=== PATIENT | male | born 1940 | race Caucasian/White ===

== ENCOUNTER 2016-08-12 11:05 | Inpatient (IN) | payer OTHER, MEDICARE ==
[~2016-08-12] VITALS: Ht 165.1 cm; Wt 63.5 kg
[~2016-08-12 11:05] MED LIST: ASPIRIN EC81 M1 PO; BUDESONIDE0.25 MG/1 INH/SOL; CARVEDILOL3.125 M1 PO; CEFTRIAXONE1 G1 IM; CEFTRIAXONE500 MG IM; CENTRUM SILVER1 TAB PO; COUMADIN 2 MG TA2 MG PO; COUMADIN2 M1 PO; COUMADIN4 M1 PO; DAILY VALUE1 EACH PO; DIGOXIN0.125 MG PO; DIGOXIN125 MCG PO; ELIQUIS2.5 M1 PO; FENOFIBRATE145 M1 PO; FOLIC ACID1 M1 PO; FUROSEMIDE20 M1 PO; FUROSEMIDE20 MG PO; HYDRALAZINE HCL25 M1 PO; IPRAT-ALBUT 0.5-3 ML PO; ISOSORBIDE MONO30 M1 PO; LANOXIN125 MCG PO; LANTUS100 U/ML SC; LASIX40 M1 PO; LEVEMIR100 UNIT/1 SC; LIPITOR40 M1 PO; LISINOPRIL2.5 MG PO; MIRTAZAPINE15 M2 PO; MOXIFLOXACIN H400 M2 PO; NOVOLOG100 U/ML SC; NOVOLOG100 UNIT/2 SC; OMEPRAZOLE40 M1 PO; PANTOPRAZOLE SO40 M1 PO; PREDNISONE10 M2 PO; PREDNISONE10 MG PO; PREDNISONE20 M1 PO; PREDNISONE5 M1 PO; RENO CAPS SOFTGE1 MG PO; RENO CAPS1 SGL PO; SENNA8.6 M3 PO; SYMBICORT 16010.2 GM; TRAZODONE HCL50 M1 PO; VOLTAREN100 GM TOP; WARFARIN SODIUM2 MG PO; ZOLPIDEM TARTRAT5 MG PO
--- NOTE | 2016-08-12 11:08 | ED DYSPNEA/ASTHMA COMPLAINT ---
History of Present Illness General Chief Complaint: Dyspnea (COPD, CHF, Other) Stated Complaint: SOB Source: patient, old records, EMS Exam Limitations: LETHARGY Vital Signs & Intake/Output Vital Signs & Intake/Output Vital Signs Date Time Temp Pulse Resp B/P Pulse O2 O2 Flow FiO2 Ox Delivery Rate 08/14 1118 94 08/14 1116 7 138/68 08/14 1116 77 138/68 08/14 1116 7 138/68 08/14 0924 98.2 83 20 128/70 96 Nasal 3.0L Cannula 08/14 0853 99 Nasal 3.0L Cannula 08/14 0000 Nasal Cannula 08/13 2200 98.0 80 20 120/70 95 Nasal Cannula 08/13 2129 64 120/70 08/13 2129 64 120/70 08/13 1808 95 Nasal 3.0L Cannula 08/13 1530 97.6 66 20 120/60 93 Nasal 2.0L Cannula ED Intake and Output 08/14 0000 08/13 1200 Intake Total 1171 220 Output Total 450 200 Balance 721 20 Intake, IV 11 Intake, Oral 1160 220 Output, Urine 450 200 Patient 157 lb Weight Allergies Coded Allergies: Fish Containing Products (N/V 05/07/16) banana (07/27/16) chicken derived (CHICKEN PROTEIN N/V 05/07/16) egg (07/27/16) shellfish derived (UNKNOWN 05/07/16) Uncoded Allergies: MEAT (07/27/16) EXTRACT Reconcile Medications Apixaban (Eliquis) 2.5 MG TABLET 1 TAB PO BID BLOOD THINNER (Reported) Aspirin (Ecotrin*) 81 MG TABLET.DR 1 TAB PO DAILY HEART HEALTH (Reported) Budesonide 0.25 MG/2 ML AMPUL.NEB 1 Vial INH/CRISTOPHER BID BREATHING PROBLEMS ( Reported) Carvedilol 3.125 MG TABLET 1 TAB PO BID BP (Reported) Digoxin (Lanoxin) 125 MCG TABLET 0.125 MG PO Q48 a-fib Folic Acid 1 MG TABLET 1 TAB PO DAILY SUPPLEMENT (Reported) Furosemide (Lasix) 40 MG TABLET 1 TAB PO BID CHF Hydralazine HCl 25 MG TABLET 25 MG PO BID HTN Insulin Aspart (Novolog) (Unknown Strength) VIAL 0 SC SEE SLIDING SCALE DIABETES (Reported) BEFORE MEALS Blood Insulin Sugar Units <80 0 81-100 2 101-200 4 201-250 6 251-300 8 301-350 10 351-400 12 >400 Call Doctor Insulin Detemir (Levemir) 100 UNIT/ML VIAL 6 U SC QPM DIABETES (Reported) Ipratropium/Albuterol Sulfate (Iprat-Albut 0.5-3(2.5) MG/3 Ml) 0.5 MG-3 MG (2.5 MG BASE)/3 ML AMPUL.NEB 1 VIAL PO 4 TIMES/DAY BREATHING PROBLEMS (Reported) Isosorbide Mononitrate (Isosorbide Mononitrate ER) 30 MG TAB.ER.24H 30 MG PO DAILY HTN Mirtazapine 15 MG TABLET 1 TAB PO QPM SLEEP (Reported) Multivitamin (Daily Value) 1 EACH TABLET 1 TAB PO DAILY SUPPLEMENT (Reported) Pantoprazole Sodium 40 MG TABLET.DR 1 TAB PO DAILY GI (Reported) Prednisone 10 MG TABLET 10 MG PO DAILY COPD Sennosides (Senna) 8.6 MG TABLET 1 TAB PO BID CONSTIPATION (Reported) Trazodone HCl 50 MG TABLET 0.5 TAB PO AT BEDTIME SLEEP (Reported) Triage Nurses Notes Reviewed? yes Onset: Abrupt Duration: day(s): (1), constant Timing: recent history Severity: moderate Activities at Onset: activity, rest Prior Episodes/Possible Cause: occasional episodes Modifying Factors: Worsens With: movement. 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 Per nursing staff the patient was taken off IV Lasix yesterday and since then has had progressively worsening lethargy, dyspnea with decreased O2 sats on 2 L, fatigue and lethargy. On arrival the patient denies any pain. According to the 10 patient has had decreased sats with crackles wheezing bilaterally and bilateral lower extremity edema. He is currently on Lasix 40 mg by mouth twice a day. He was recently admitted here for CHF. He is gained 4 pounds overnight according to W 10. No recent fever or chills patient denies any pain dizziness lightheadedness (PATY LOMELI,CATA) Past History Travel History Traveled to [place] past 21 day No Medical History Any Pertinent Medical History? 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) Renal: chronic kidney disease Musculoskeletal: R THUMB REMOVED L SHOULDER SURGERY industrial accident leading to traumatic amputation in 1966 Psychiatric: depression Endocrine: diabetes Blood Disorders: NONE Cancer(s): NONE PSYCHOLOGIST EXPERIMENTAL/Reproductive: NONE History of MRSA: No History of VRE: No History of CDIFF: No Pneumonia Vaccine: 04/12/16 Influenza Vaccine: 04/12/16 Surgical History Surgical History: cholecystectomy (lap), L LEG BIPASS L CHEST WALL PACEMAKER/ AICD TRIPLE BIPASS ANGIOPLASTY ENDOVASC AAA REPAIR Psychosocial History Who do you live with Patient/Self Services at Home Home Health Aide (prior to 05/11/16; in [place]) What is your primary language Indian Family History Family History, If Any: SON FH: diabetes mellitus FHx: hypertension FATHER, , Age 60+; Cause: Myocardial infarction. FH: myocardial infarction MOTHER, , Age 54; Cause: Unknown cause of morbidity or mortality. Hx Contributory? No (CATA RAGSDALE) Review of Systems Review of Systems Constitutional: Reports: see HPI. All Other Systems: Reviewed and Negative Comments Review of systems: See HPI, All other systems negative. Constitutional, no chills no fever, malaise HEENT: No visual changes no sore throat no congestion Cardiovascular: No chest pain , no palpitation Skin, no rashes, no change in skin Respiratory: dyspnea no cough no sputum GI: No nausea no vomiting, no diarrhea, no bloating/constipation : No dysuria No hematuria Muscle skeletal: No joint pain, no back pain, no neck pain, Neurologic: No numbness, no headache Psych: No stress Heme/endocrine: No bruising no bleeding Immunology: No lymphadenopathy (CATA RAGSDALE) Physical Exam Physical Exam General Appearance: awake, cachetic Respiratory: crackles, wheezing Comments: CACHETIC person in no acute distress HEENT: Normal EENT exam; PERRL, EOMI, HEAD is atraumatic. moist mucous membranes. Neck: Supple, no lymphadenopathy, normal range of motion without pain or tenderness Back: Nontender, no CVA tenderness. Full range of motion Cardiovascular: Regular rate and rhythms no murmurs rubs Respiratory: Chest nontender.There were no bony deformities, no asymmetry. No respiratory distress. Patient speaking in full complete sentences. Breath sounds clear to auscultation bilaterally: NO W/R/R Abdomen: Soft, nontender nondistended, no appreciable organomegaly. Normal bowel sounds. No rebound/guarding, No ascites. Extremity: 2+ B/L LE jennyfer, full range of motion of extremities, normal and equal pulses bilaterally, 5 out of 5 strength noted to bilateral upper and lower extremities Neuro: Alert oriented x3, motor sensory normal, There were no obvious focal neurologic abnormalities. Skin: No appreciable rash on exposed skin, skin is warm and dry. Psych: Mood and affect is normal, memory and judgment is normal. Core Measures ACS in differential dx? Yes Severe Sepsis Present: No Septic Shock Present: No (PATY LOMELI,CATA) Progress Differential Diagnosis: asthma, AMI, bronchitis, costochondritis, CHF, COPD, musculoskeletal pain, pericarditis, pulmonary embolism, pneumonia Plan of Care: Orders Procedure Date/time Status CBC WITHOUT DIFFERENTIAL 08/15 0600 Active BASIC ELECTROLYTES PLUS BUN&CR 08/15 0600 Active Consistent Carbohydrate 3 08/14 L Active INCENTIVE SPIROMETRY TRX CHG 08/13 UNK Complete AEROSOL CHG 08/13 UNK Complete OXYGEN 08/13 UNK Complete OXYGEN DAILY CHARGE 08/13 UNK Complete OXYGEN SETUP CHG 08/12 UNK Complete INCENTIVE SPIROMETRY TRX CHG 08/12 UNK Complete AEROSOL CHG 08/12 UNK Complete OXYGEN 08/12 UNK Complete OXYGEN TRANSPORT 08/12 UNK Complete Current Medications Sig/Bang Start time Last Medication Dose Stop Time Status Admin Senna/Docusate Sodium 1 TAB BID PRN 08/12 1430 AC (Senokot S) Laboratory Tests 08/14/16 0630: Anion Gap 13, Estimated GFR 33 L, BUN/Creatinine Ratio 42.0 H, Magnesium 2.3, CBC w Diff MAN DIFF ORDERED, RBC 4.94, MCV 77.8 L, MCH 24.2 L, RDW 25.5 H, MPV 9.2, Gran % 94.5 H, Lymphocytes % 2.9 L, Monocytes % 2.5, Eosinophils % 0.1, Basophils % 0 L, Absolute Granulocytes 10.2 H, Absolute Lymphocytes 0.3 L, Absolute Monocytes 0.3, Absolute Eosinophils 0, Absolute Basophils 0, Platelet Estimate VERIFIED BY SMEAR, Polychromasia 1+, Hypochromic-Microcytic 2+ , Poikilocytosis 1+, Basophilic Stippling SLIGHT, Anisocytosis 2+, Microcytic Cells 1+, Target Cells , PUBS MCHC 31.1 L Labs ordered ABG DuoNeb ordered case discussed with Dr. Francis Discussed with the patient and his son all his lab results and EKG and chest x- ray findings need for admission which erythema patient was medicated with Lasix 40 IV Case discussed with Dr. Lewis covering for Dr. RYAN WILL ADMIT (PATY LOMELI,CATA) Diagnostic Imaging: Viewed by Me: Radiology Read. Discussed w/RAD: Radiology Read. Radiology Impression: PATIENT: BRIDGET HERRERA PRESENT AGE: 75 PATIENT ACCOUNT NO: [id number] : 42 LOCATION: [facility] ORDERING PHYSICIAN: CATA LOMELI SERVICE DATE: 08/12/16 EXAM TYPE: RAD - XRY-PORTABLE CHEST XRAY EXAMINATION: XR PORTABLE CHEST CLINICAL INFORMATION: Shortness of breath. COMPARISON: CXR from 07/26/2016 TECHNIQUE: Portable view of the chest was obtained. FINDINGS: The patient's chin overlies the right lung apex. Again noted is a large cardiac silhouette, engorged pulmonary vessels and interstitial thickening -- likely cardiogenic interstitial edema. There is a left chest wall cardiac pacemaker/AICD with transvenous leads extending to the right atrium and both ventricles. Pleural effusions remain similar in size compared to 07/26/2016 (left larger than right). There are nonspecific patchy opacities in the lower lobes from atelectasis, edema and/or infiltrates, and these basilar opacities have slightly increased compared to . Bones appear diffusely osteopenic. IMPRESSION: Cardiomegaly and congestive heart failure. Interstitial edema is evident. Persistent bilateral pleural effusions (left remaining larger than right). The increased patchy opacities in lower lung zones are nonspecific and could reflect presence of atelectasis, edema and/or infiltrates. DICTATED BY: DEUCE VAZ MD DATE/TIME DICTATED:08/12/161222 DENTURE MODEL MAKER:EARL DATE/TIME TRANSCRIBED: / 1223 CONFIDENTIAL, DO NOT COPY WITHOUT APPROPRIATE AUTHORIZATION. < Electronically signed in Other Vendor System> SIGNED BY: DEUCE VAZ MD 08/12/16 1231 Initial ED EKG: AFIB AT 90, NO ACUTE ST SEG CHAGNGES, NORMAL AXIS Prior EKG: unchanged (07/2016) Rhythm Strip: atrial fibrillation (CATA RAGSDALE) Departure Departure Time of Disposition: 1303 Disposition: STILL A PATIENT Condition: Stable Clinical Impression Primary Impression: CHF exacerbation Secondary Impressions: BOBBY (acute kidney injury) Referrals: ANISH RYAN MD (PCP/Family) Referred to [facility] as new patient No Departure Forms: Customer Survey General Discharge Information Admission Note Spoke With: LINDA LEWIS MD Documentation of Exam: Documentation of any treatments & extenuating circumstances including Concerns Regarding Discharge (functional status, medication knowledge or non-compliance, living conditions, etc.) that warrant an admission rather than observation: IV diuresis trend labs including creatinine, transient troponin cardiology consult respiratory treatments when necessary premature discharge would BE medically harmful (CATA RAGSDALE) PA/NEURO PSYCH SALES SPECIALIST Co-Sign Statement Statement: ED Attending supervision documentation- [x] I saw and evaluated the patient. I have also reviewed all the pertinent lab results and diagnostic results. I agree with the findings and the plan of care as documented in the PA's/NEURO PSYCH SALES SPECIALIST's documentation. [x] I have reviewed the ED Record and agree with the PA's/NEURO PSYCH SALES SPECIALIST's documentation. [] Additions or exceptions (if any) to the PAs/NEURO PSYCH SALES SPECIALIST's note and plan are summarized below: [] (NATE NEGRETE,WAQAR) Critical Care Note Critical Care Note Critical Care Time: non-applicable (CATA RAGSDALE) Case discussed with Dr. Lewis covering for Dr. RYAN WILL ADMIT (CATA RAGSDALE) Departure Departure Time of Disposition: 1303 Disposition: STILL A PATIENT Condition: Stable Clinical Impression Primary Impression: CHF exacerbation Secondary Impressions: BOBBY (acute kidney injury) Referrals: ANISH RAYN MD (PCP/Family) Referred to [facility] as new patient No Departure Forms: Customer Survey General Discharge Information Admission Note Spoke With: LINDA LEWIS MD Documentation of Exam: Documentation of any treatments & extenuating circumstances including Concerns Regarding Discharge (functional status, medication knowledge or non-compliance, living conditions, etc.) that warrant an admission rather than observation: IV diuresis trend labs including creatinine, transient troponin cardiology consult respiratory treatments when necessary premature discharge would BE medically harmful (CATA RAGSDALE) PA/NEURO PSYCH SALES SPECIALIST Co-Sign Statement Statement: ED Attending supervision documentation- [x] I saw and evaluated the patient. I have also reviewed all the pertinent lab results and diagnostic results. I agree with the findings and the plan of care as documented in the PA's/NEURO PSYCH SALES SPECIALIST's documentation. [x] I have reviewed the ED Record and agree with the PA's/NEURO PSYCH SALES SPECIALIST's documentation. [] Additions or exceptions (if any) to the PAs/NEURO PSYCH SALES SPECIALIST's note and plan are summarized below: [] (NATE NEGRETE,WAQAR) Critical Care Note Critical Care Note Critical Care Time: non-applicable (CATA RAGSDALE)
--- NOTE | 2016-08-12 11:10 | NUR ---
BIBA FROM [facility] FOR SOB AND INCREASING EDEMA. PT WAS ON IV LASIX BUT HAS STOPPED THE IV AND IS NOW ON PO LASIX. PT HAS HAD EDEMA, CRACKLES, AND SOB WORSENING SINCE LAST NIGHT. PT ON 2LNC AT BASELINE. UPON ARRIVAL PT LETHARGIC BUT ORIENTED X3. 93% ON 4LNC.
--- NOTE | 2016-08-12 11:56 | NUR ---
BLOOD DRAWN AND SENT TO LAB-[facility].
[2016-08-12 12:10] LABS: ABSOLUTE BASOPHIL COUNT 0 /CUMM (0.0-0.2); ABSOLUTE EOSINOPHIL COUNT 0.1 /CUMM (0.0-0.7); ABSOLUTE LYMPH COUNT 0.3 /CUMM (1.2-3.4); ABSOLUTE MONOCYTE COUNT 0.5 /CUMM (0.10-0.60); BASOPHIL % 0.1 % (0.0-2.0); EOSINOPHIL % 1.1 % (0-5); GRANULOCYTE % 87.1 % (42.2-75.2); HEMATOCRIT 36.4 % (42-52); MEAN CORPUSCULAR HGB 24.3 PG (27.0-31.0); MEAN CORPUSCULAR HGB CONC 31.2 G/DL (33.0-37.0); MEAN CORPUSCULAR VOLUME 77.9 FL (80.0-94.0); MEAN PLATELET VOLUME 9.5 FL (7.4-10.4); PLATELET COUNT 226 /CUMM (130-400); RED BLOOD CELL CT 4.67 /CUMM (4.70-6.10); WHITE BLOOD CELL COUNT 6.9 /CUMM (4.8-10.8)
--- NOTE | 2016-08-12 12:29 | NUR ---
IV LASIX ADMINISTERED. PT'S SON (POBlanca) AT BEDSIDE. STATES HE'S HAD INCREASING LEFT ARM EDEMA X1 WEEK. AVSS, HR 70'S. 02 DECREASED TO 3LNC,NOW 94-95%
--- NOTE | 2016-08-12 12:31 | RADIOLOGY REPORT ---
EXAMINATION: XR PORTABLE CHEST CLINICAL INFORMATION: Shortness of breath. COMPARISON: CXR from 07/26/2016 TECHNIQUE: Portable view of the chest was obtained. FINDINGS: The patient's chin overlies the right lung apex. Again noted is a large cardiac silhouette, engorged pulmonary vessels and interstitial thickening -- likely cardiogenic interstitial edema. There is a left chest wall cardiac pacemaker/AICD with transvenous leads extending to the right atrium and both ventricles. Pleural effusions remain similar in size compared to 07/26/2016 (left larger than right). There are nonspecific patchy opacities in the lower lobes from atelectasis, edema and/or infiltrates, and these basilar opacities have slightly increased compared to 07/26/2016. Bones appear diffusely osteopenic. IMPRESSION: Cardiomegaly and congestive heart failure. Interstitial edema is evident. Persistent bilateral pleural effusions (left remaining larger than right). The increased patchy opacities in lower lung zones are nonspecific and could reflect presence of atelectasis, edema and/or infiltrates.
--- NOTE | 2016-08-12 14:29 | NUR ---
PT RESTING COMFORTABLY, IN NAD
--- NOTE | 2016-08-12 15:36 | History & Physical ---
GREG JESUS 08/12/16 1416: General Information and HPI MD Statement: I have seen and personally examined BRIDGET HERRERA and documented this H&P. The patient is a 75 year old M who presented with a patient stated chief complaint of worsening shortness of breath and bilateral lower extremity edema for 1 day Source of Information: patient, old records, W10 Exam Limitations: clinical condition History of Present Illness: This is a 75-year-old male with past medical history significant for HFREF secondary to ischemic cardiomyopathy status post biventricular AICD, atrial fibrillation on eliqus and digoxin, coronary artery disease status post CABG and triple bypass, COPD on 2 L oxygen, systolic congestive heart failure on Lasix, type 2 diabetes mellitus, insomnia, anxiety, depression, GERD, peripheral vascular disease, endovascular abdominal aortic repair, right MCA stroke was brought to [facility] emergency department from [facility] for worsening shortness of breath, bilateral lower extremity edema, decreased oxygen saturations for one day. Of note patient was discharged on 07/30/2016 after treated for acute decompensated heart failure. He was discharged to [facility] on Lasix 40 mg twice a day. Last echocardiogram done in July 2016 showed ejection fraction 15-20% with systolic failure, moderate pulmonary hypertension. Patient was hospitalized in April 2015 after mechanical fall and treated for pneumonia and discharged to [facility]. Patient reports worsening shortness of breath since yesterday and his oxygen saturations were dropping down on 2 L and has been Requiring high amounts of oxygen. SOB Associated with wheezing. No orthopnea and paroxysmal nocturnal dyspnea. Not associated with any fever, chills, cough, hemoptysis or sputum production. He denied any chest pain, palpitations. He denied any sick contacts or travel history. He denied any nausea, vomiting, abdominal pain, change in bladder or bowel habits. According to W10 patient has been lethargic since last night. He complained fatigue at the rehabilitation center. Noticed worsening bilateral lower extremity edema for one day. He gained weight 4 pounds. No changes in diet. Complement with medication. He quitted smoking 15 years ago, denies alcohol intake, denies illicit drug abuse. 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 Allergies/Medications Allergies: Coded Allergies: Fish Containing Products (N/V 05/07/16) banana (07/27/16) chicken derived (CHICKEN PROTEIN N/V 05/07/16) egg (07/27/16) shellfish derived (UNKNOWN 05/07/16) Uncoded Allergies: MEAT (07/27/16) EXTRACT Home Med list Apixaban (Eliquis) 2.5 MG TABLET 1 TAB PO BID BLOOD THINNER (Reported) Aspirin (Ecotrin*) 81 MG TABLET.DR 1 TAB PO DAILY HEART HEALTH (Reported) Budesonide 0.25 MG/2 ML AMPUL.NEB 1 Vial INH/CRISTOPHER BID BREATHING PROBLEMS ( Reported) Carvedilol 3.125 MG TABLET 1 TAB PO BID BP (Reported) Digoxin (Lanoxin) 125 MCG TABLET 0.125 MG PO Q48 a-fib Folic Acid 1 MG TABLET 1 TAB PO DAILY SUPPLEMENT (Reported) Furosemide (Lasix) 40 MG TABLET 1 TAB PO BID CHF Hydralazine HCl 25 MG TABLET 25 MG PO BID HTN Insulin Aspart (Novolog) (Unknown Strength) VIAL 0 SC SEE SLIDING SCALE DIABETES (Reported) BEFORE MEALS Blood Insulin Sugar Units <80 0 81-100 2 101-200 4 201-250 6 251-300 8 301-350 10 351-400 12 >400 Call Doctor Insulin Detemir (Levemir) 100 UNIT/ML VIAL 6 U SC QPM DIABETES (Reported) Ipratropium/Albuterol Sulfate (Iprat-Albut 0.5-3(2.5) MG/3 Ml) 0.5 MG-3 MG (2.5 MG BASE)/3 ML AMPUL.NEB 1 VIAL PO 4 TIMES/DAY BREATHING PROBLEMS (Reported) Isosorbide Mononitrate (Isosorbide Mononitrate ER) 30 MG TAB.ER.24H 30 MG PO DAILY HTN Mirtazapine 15 MG TABLET 1 TAB PO QPM SLEEP (Reported) Multivitamin (Daily Value) 1 EACH TABLET 1 TAB PO DAILY SUPPLEMENT (Reported) Pantoprazole Sodium 40 MG TABLET.DR 1 TAB PO DAILY GI (Reported) Prednisone 10 MG TABLET 10 MG PO DAILY COPD Sennosides (Senna) 8.6 MG TABLET 1 TAB PO BID CONSTIPATION (Reported) Trazodone HCl 50 MG TABLET 0.5 TAB PO AT BEDTIME SLEEP (Reported) Compliance With Home Meds: GOOD Past History Travel History Traveled to [place] past 21 day No Medical History Neurological: NONE (R MCA distribution), CVA EENT: NONE Cardiovascular: AFIB, CAD, cardiomyopathy, CHF, hypertension, hyperlipidemia, PVD, PACEMAKER/DEFIB TRIPLE BIPASS ANGIOPLASTY ischemic cardiomyopathy Respiratory: emphysema, interstitial lung disease Gastrointestinal: 04/23/07: EGD- min GERD w/o bxs 09/18/04: Colon- purged, hyperplastic polyps Hepatic: 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) Renal: chronic kidney disease Musculoskeletal: R THUMB REMOVED L SHOULDER SURGERY industrial accident leading to traumatic amputation in 1966 Psychiatric: depression Endocrine: diabetes Blood Disorders: NONE Cancer(s): NONE BODY MASKER/Reproductive: NONE History of MRSA: No History of VRE: No History of CDIFF: No Pneumonia Vaccine: 04/12/16 Influenza Vaccine: 04/12/16 Surgical History Surgical History: cholecystectomy (lap), L LEG BIPASS L CHEST WALL PACEMAKER/ AICD TRIPLE BIPASS ANGIOPLASTY ENDOVASC AAA REPAIR Past Family/Social History Family History Relations & Conditions if any SON FH: diabetes mellitus FHx: hypertension FATHER, , Age 60+; Cause: Myocardial infarction. FH: myocardial infarction MOTHER, , Age 54; Cause: Unknown cause of morbidity or mortality. Psychosocial History Who Do You Live With? spouse (prior to 05/11/16; in [place]), self Services at Home: Home Health Aide (prior to 05/11/16; in [place]) Primary Language: South African, Montenegrin Smoking Status: Former Smoker ETOH Use: denies use, 6 Illicit Drug Use: denies illicit drug use Living Will? no Power of Director Of Acquisitions/HCP? yes Name of POA/HCP: pt's sonKamlesh [phone] Functional Ability ADLs Independent: eating, toileting. Needs Assist: dressing, bathing. Ambulation: independent IADLs Independent: shopping, housework, finances, food prep, telephone, medication admin. Needs Assist: transportation. Review of Systems Review of Systems Constitutional: Reports: weakness. Denies: chills, diaphoresis, fever, malaise, unexplained weight loss. EENTM: Denies: double vision, hearing changes. Cardiovascular: Reports: peripheral edema. Denies: chest pain, edema, orthopena, palpitations, syncope. Respiratory: Reports: short of breath, wheezing. Denies: cough, hemoptysis, orthopnea, stridor. GI: Denies: abdominal pain, constipation, diarrhea, nausea, changes in stool, vomiting. Genitourinary: Denies: frequency, hematuria, hesitation. Musculoskeletal: Denies: back pain, joint pain. Neurological/Psychological: Denies: confusion, depressed, headache, numbness, tingling, tremors, weakness. Exam & Diagnostic Data Last 24 Hrs of Vital Signs/I&O Vital Signs Date Time Temp Pulse Resp B/P Pulse O2 O2 Flow FiO2 Ox Delivery Rate 08/12 1346 97.6 74 22 134/70 92 Nasal 4.0L Cannula 08/12 1224 75 12 143/79 94 Nasal 3.0L Cannula 08/12 1141 92 Nasal 4.0L Cannula 08/12 1109 96.8 81 20 165/79 94 Nasal 4.0L Cannula Intake & Output 08/12 1600 08/12 0800 08/12 0000 Intake Total 0 Output Total Balance 0 Intake, Oral 0 Patient 69.853 kg Weight Physical Exam General Appearance Alert, Oriented X3, Cooperative, Mild Distress Skin No Rashes, No Breakdown HEENT Atraumatic, Mucous Membr. moist/pink Neck Supple, No JVD Lymphatic Cervical nl Cardiovascular Regular Rate, Normal S1, Normal S2, No Murmurs, irregular rhythm Lungs dec air entry and b/l wheezes Abdomen Normal Bowel Sounds, Soft, No Tenderness Extremities No Clubbing, No Cyanosis, b/l lower ext +2 edema Vascular Normal Pulses Last 24 Hrs of Labs/Regis: Laboratory Tests 08/12/16 1156: Anion Gap 10, Estimated GFR 40 L, BUN/Creatinine Ratio 36.5 H, Glucose 165 H, Calcium 8.3 L, Total Bilirubin 1.9 H, AST 48, ALT 71, Alkaline Phosphatase 94, Troponin I 0.09, [id number] Pept 93015 H, Total Protein 6.6, Albumin 2.6 L, Globulin 4.0, Albumin/Globulin Ratio 0.7 L, CBC w Diff MAN DIFF ORDERED, RBC 4.67 L, MCV 77.9 L, MCH 24.3 L, RDW 26.0 H, MPV 9.5, Gran % 87.1 H, Lymphocytes % 4.9 L, Monocytes % 6.8, Eosinophils % 1.1, Basophils % 0.1, Absolute Granulocytes 6.0, Absolute Lymphocytes 0.3 L, Absolute Monocytes 0.5, Absolute Eosinophils 0.1, Absolute Basophils 0, Platelet Estimate VERIFIED BY SMEAR, Polychromasia 1+, Hypochromic-Microcytic 2+, Poikilocytosis 1+, Anisocytosis 1+, Microcytic Cells 1+, Ovalocytes 1+, PUBS MCHC 31.2 L 08/12/16 1133: pH 7.33 L, pCO2 49 H, pO2 79 L, HCO3 25, ABG O2 Sat (Measured) 93.0 L, P-50 (Temp Corrected) N, Carboxyhemoglobin 2.0, O2 Concentration % 4LPM, O2 Delivery Method NC, Phlebotomy Draw Site RIGHT BRACHIAL Microbiology 08/12 111 BLOOD: Blood Culture - CAN Cancelled: Cancelled via OE: Per MD Decision 08/12 111 BLOOD: Blood Culture - CAN Cancelled: Cancelled via OE: Per MD Decision Diagnostic Data EKG Results Atrial fibrillation/flutter Ventricular paced complexes Rate [address]-T wave changes CXR Results Cardiomegaly and congestive heart failure Bilateral interstitial edema Bilateral pleural effusions left greater than right Assessment/Plan Assessment: This is a 75-year-old male with past medical history significant for HFREF secondary to ischemic cardiomyopathy status post biventricular AICD, atrial fibrillation on eliqus and digoxin, coronary artery disease status post CABG and triple bypass, COPD on 2 L oxygen, systolic congestive heart failure on Lasix, type 2 diabetes mellitus, insomnia, anxiety, depression, GERD, peripheral vascular disease, endovascular abdominal aortic repair, right MCA stroke was brought to [facility] emergency department from [facility] for worsening shortness of breath, bilateral lower extremity edema, decreased oxygen saturations for one day. Of note patient was discharged on 07/30/2016 after treated for acute decompensated heart failure. He was discharged to [facility] on Lasix 40 mg twice a day. Last echocardiogram done in July 2016 showed ejection fraction 15-20% with systolic failure, moderate pulmonary hypertension. Vitals on admission-afebrile, heart rate 80, respiratory rate 20, blood pressure 165/70, saturating at 94% on 4 L. -Pertinent labs-CBC normal, sodium 139, potassium 5.4, BUN 62, creatinine 1.7. Liver function tests-bilirubin 1.9, ALT 71, AST 48, alkaline phosphatase 94 Troponins negative on admission ProBNP 39390. ABG 7.33, 25, 49 EKG atrial flutter fibrillation rate 88. No ST-T wave changes. Chest x-ray showed cardiomegaly and congestive heart failure interstitial edema and bilateral pleural effusions left greater than right Patient received IV Lasix 40 mg once in the emergency room. Problem list 1. Acute exacerbation of HFREF 2. Possible COPD exacerbation 3. Atrial fibrillation 4. Chronic kidney disease 5. Coronary artery disease status post CABG 6. Type 2 diabetes mellitus 7. Insomnia 8. Anxiety 9. GERD 10. Depression Acute exacerbation of systolic congestive heart failure(hfref) Patient was brought to the emergency department with worsening shortness of breath and decreased oxygen saturations on 2 L oxygen. Increased weight gain and bilateral lower extremity edema was found. He was found lethargic and wheezing. ProBNP elevated on admission. Chest x-ray showed cardiomegaly and congestive heart failure, bilateral pleural effusions left greater than right. Of note patient was discharged on 07/30/2016 after being treated for acute systolic congestive heart failure. He was discharged on carvedilol, hydralazine ,IMDUR, Lasix 40 twice a day, digoxin. * Admitted to telemetry floor for treatment of acute CHF exacerbation * Monitor vitals every shift * Maintain oxygen saturation above 92% * Provide supplemental oxygen-saturating at 92% on 4 L now * Strict ins and outs * Daily weights * Give IV Lasix 40 bd. * Monitor BEP. * Cardiology consult * Echo was done recently. * Continue Coreg 3.125 twice a day * Continue isosorbide mononitrate 30 mg daily * Continue home dose of hydralazine 25 mg twice a day. * First set of EKG and troponins negative * Serial EKG and troponin Possible COPD exacerbation Presented with worsening shortness of breath and wheezing. He was lethargic and wheezing. ABGs in the emergency room showed pH 7.33, bicarbonate 25, carbon dioxide 49, respiratory acidosis with compensation. Of note patient is on 2 L oxygen at nursing care facility. He is requiring 4 L now. * Continue providing oxygen supplementation * Maintain oxygen saturation above 90% * Monitor vitals closely * Total respiratory care * Methylprednisolone 40 mg every 8hrs * Budesonide * albuterol/ipratropium * Blood cultures * Sputum cultures Hyperkalemia Potassium 5.4 on admission No EKG changes We'll monitor closely BEP in the morning Chronic kidney disease Baseline creatinine 1.5-1.8. Creatinine on admission 1.7 Atrial fibrillation Continue home dose of eliqus 2.5 mg twice a day Continue digoxin 0.125 mg every 48 hours Coronary artery disease Status post CABG and triple bypass Continue baby aspirin Hypertension Continue home dose of Coreg hydralazine and isosorbide mono nitrate both for hypertension and CHF Type 2 diabetes mellitus Patient is on NovoLog sliding scale and Levemir 6 units every night for type 2 diabetes mellitus * Accu-Cheks * Continue Levemir * Continue NovoLog sliding scale Insomnia Continue mirtazapine every night anxiety Continue trazodone 25 mg GERD Continue pantoprazole 40 daily Patient is full code Mild pain pathway Tylenol Heart healthy diet DVT prophylaxis-patient is on eliqus As Ranked By This Provider Problem List: 1. CHF EXACERBATION 2. COPD exacerbation 3. HFrEF (heart failure with reduced ejection fraction) 4. Ischemic cardiomyopathy 5. T2DM (type 2 diabetes mellitus) 6. COPD (chronic obstructive pulmonary disease) Core Measures/Miscellaneous Acute Coronary Syndrome ACS Diagnosis: No Cerebrovascular Accident CVA/TIA Diagnosis: No Congestive Heart Failure CHF Diagnosis: Yes Date of most recent Echo: 07/26/16 Last Known EF %: 20 FAISAL/ARB for EF <40%: No No FAISAL/ARB d/t: Renal Failure/Azotemia Venous Thromboembolism VTE Risk Factors: Acute medical illness, Age > 40, CHF or Resp failure VTE Prophylaxis [facility]dered Inpt: [facility] prophylaxis d/t: No contraindications No VTE Pharm Prophylaxis d/t: No contraindications VTE Diagnosis: No VTE Type: NONE VTE Confirmed by (Test): NONE Severe Sepsis Severe Sepsis Present: No Septic Shock Septic Shock Present: No Miscellaneous Documentation Attending Case Discussed With: DEBBIE NEGRETE,LINDA Cruz Primary Care Physician: ANISH RYAN MD Patient sees these Specialists cardiology Level of Patient Care: Telemetry WILNER NEGRETE,BART 08/12/16 1606: Resident Review Statement Resident Statement: examined this patient, discussed with machine learning intern, agreed with machine learning intern, discussed with family, reviewed EMR data (avail), discussed with nursing , discussed with case mgmt, reviewed images, amended to note Other Findings: She has a 75-year-old time man with a medical history of severe heart failure with reduced ejection fraction (left ventricular ejection fraction 15%) permanent past maker pulmonary hypertension known coronary artery disease CABG hypertension atrial fibrillation dyslipidemia peripheral vascular disease right MCA CVA with left-sided weakness COPD pneumonia ischemic hepatitis AKA on CK be now here with significant congestive heart failure evidenced both clinically and objectively on labs with BNP of 60,000, respiratory acidosis, cardiomegaly with significant edema on chest x-ray. He will be admitted to the cardiac unit and diuresed aggressively, await cardiology consultation LINDA LEWIS MD 08/12/16 1921: Attending MD Review Statement Attending Statement Attending MD Statement: examined this patient, agreed w/resident/PA/COIL SPRING ASSEMBLER, reviewed EMR data (avail), reviewed images, amended to note Attending Assessment/Plan: Mr. Herrera was interviewed, examined, and his chart reviewed. He is a poor historian information is obtained from previous phone call and his W10. Problems: -Recurrent congestive heart failure -Ischemic cardiomyopathy S/P CABG -Atrial fibrillation S/P PPM/AICD -Left upper extremity edema -PVD -COPD steroid and oxygen dependent -T2 DM -GERD -Depression -Insomnia -History of CVA Plan: -Admit telemetry -Serial EKG troponin -Intravenous furosemide 40 mg twice a day -O2 supplementation -TRC, nebs, intravenous steroids -Cultures -Venous Dopplers left upper extremity -Continue maintenance medications -Cardiology consultation
--- NOTE | 2016-08-12 15:48 | NUR ---
PT ADMITTED TO ROOM 174-2
--- NOTE | 2016-08-12 16:08 | NUR ---
REPORT GIVEN TO CHAIM SKINNER
--- NOTE | 2016-08-12 17:00 | NUR ---
NURSING ACCEPTANCE NOTE: PT ARRIVED TO UNIT VIA STRETCHER FROM ED. VITALS OBTAINED, PLACED ON TELE, DENIES PAIN. IV SITES TO E . BED ALARM IN PLACE. CALL BRANDT IN REACH AND EXPLAINED. SETTLED IN TO BED, DINNER ORDERED. NO OTHER NEEDS AT THIS TIME. WILL CONTINUE TO MONITOR.
[2016-08-12 17:30] VITALS: BP 122/70
--- NOTE | 2016-08-12 19:18 | NUR ---
NURSING NOTE: DISCUSSED WITH MD JESUS ABOUT IV LASIX ORDER. PER , OKAY TO GIVEN IV LASIX DOSE DUE AT 1630 LATE @ 2100 BASED OFF OF PREVIOUS DOSE GIVEN @ 1220 PM IN ED. WILL RESUME REGULAR BID LASIX SCHEDULE TOMORROW.
--- NOTE | 2016-08-12 20:33 | Cons- Cardiology ---
General Information and HPI Consulting Request Date of Consult: 08/12/16 Requested By: DEBBIE NEGRETE,LINDA Cruz Reason for Consult: CHF History of Present Illness: The patient is a 75-year-old male with history of HFrEF secondary to ischemic cardiomyopathy, biventricular ICD, atrial fibrillation, anticoagulated on Eliquis, CAD, status post CABG, COPD, type 2 diabetes mellitus. He presents to the hospital with complaint of worsening shortness of breath and bilateral lower extremity edema x1 day. He is noted to have decreased oxygen saturations. He was previously discharged on July 30 after admission for decompensated heart failure, he was discharged at that time on Lasix 40 milligrams twice a day. During the prior admission his ejection fraction was noted to be 15 to 20%. No chest pain. No palpitations. No diaphoresis. No syncope. No nausea or vomiting. No lightheadedness or dizziness. Allergies/Medications Allergies: Coded Allergies: Fish Containing Products (N/V 05/07/16) banana (07/27/16) chicken derived (CHICKEN PROTEIN N/V 05/07/16) egg (07/27/16) shellfish derived (UNKNOWN 05/07/16) Uncoded Allergies: MEAT (07/27/16) EXTRACT Home Med List: Apixaban (Eliquis) 2.5 MG TABLET 1 TAB PO BID BLOOD THINNER (Reported) Aspirin (Ecotrin*) 81 MG TABLET.DR 1 TAB PO DAILY HEART HEALTH (Reported) Budesonide 0.25 MG/2 ML AMPUL.NEB 1 Vial INH/CRISTOPHER BID BREATHING PROBLEMS ( Reported) Carvedilol 3.125 MG TABLET 1 TAB PO BID BP (Reported) Digoxin (Lanoxin) 125 MCG TABLET 0.125 MG PO Q48 a-fib Folic Acid 1 MG TABLET 1 TAB PO DAILY SUPPLEMENT (Reported) Furosemide (Lasix) 40 MG TABLET 1 TAB PO BID CHF Hydralazine HCl 25 MG TABLET 25 MG PO BID HTN Insulin Aspart (Novolog) (Unknown Strength) VIAL 0 SC SEE SLIDING SCALE DIABETES (Reported) BEFORE MEALS Blood Insulin Sugar Units <80 0 81-100 2 101-200 4 201-250 6 251-300 8 301-350 10 351-400 12 >400 Call Doctor Insulin Detemir (Levemir) 100 UNIT/ML VIAL 6 U SC QPM DIABETES (Reported) Ipratropium/Albuterol Sulfate (Iprat-Albut 0.5-3(2.5) MG/3 Ml) 0.5 MG-3 MG (2.5 MG BASE)/3 ML AMPUL.NEB 1 VIAL PO 4 TIMES/DAY BREATHING PROBLEMS (Reported) Isosorbide Mononitrate (Isosorbide Mononitrate ER) 30 MG TAB.ER.24H 30 MG PO DAILY HTN Mirtazapine 15 MG TABLET 1 TAB PO QPM SLEEP (Reported) Multivitamin (Daily Value) 1 EACH TABLET 1 TAB PO DAILY SUPPLEMENT (Reported) Pantoprazole Sodium 40 MG TABLET.DR 1 TAB PO DAILY GI (Reported) Prednisone 10 MG TABLET 10 MG PO DAILY COPD Sennosides (Senna) 8.6 MG TABLET 1 TAB PO BID CONSTIPATION (Reported) Trazodone HCl 50 MG TABLET 0.5 TAB PO AT BEDTIME SLEEP (Reported) Current Medications: Current Medications Sig/Bang Start time Last Medication Dose Route Stop Time Status Admin Albuterol Sulfate 3 ML EVERY 4 HRS/AWAKE 08/13 0800 AC INH Albuterol Sulfate 3 ML ONCE ONE 08/12 1130 DC 08/12 INH 08/12 1131 1120 Apixaban 2.5 MG BID 08/12 2200 AC 08/12 PO 2303 Aspirin Buffered 81 MG DAILY 08/13 1000 AC PO Budesonide 0.25 MG BID 08/12 1430 AC 08/12 INH 2304 Carvedilol 3.125 MG BID 08/12 2200 AC 08/12 PO 2303 Digoxin 0.125 MG Q48 08/14 1000 AC PO Folic Acid 1 MG DAILY 08/13 1000 AC PO Furosemide 40 MG 7:30 AM, & 4:30 PM 08/12 1630 AC 08/12 IV 2304 Furosemide 0 .STK-MED ONE 08/12 1210 DC IV Furosemide 40 MG ONCE ONE 08/12 1115 DC 08/12 IV 08/12 1116 1220 Hydralazine HCl 25 MG BID 08/12 2200 AC 08/12 PO 2303 Insulin Aspart 0 TIDAC 08/13 0800 AC SC Insulin Detemir 6 UNITS QPM 08/12 2200 AC 08/12 SC 2303 Ipratropium [place] 2.5 ML EVERY 4 HRS/AWAKE 08/13 0800 AC INH Ipratropium [place] 2.5 ML ONCE ONE 08/12 1430 DC INH 08/12 1431 Ipratropium [place] 2.5 ML ONCE ONE 08/12 1130 DC 08/12 INH 08/12 1131 1120 Isosorbide 30 MG DAILY 08/13 1000 AC Mononitrate PO Methylprednisolone 0 .STK-MED ONE 08/12 1657 DC .ROUTE Methylprednisolone 40 MG Q8 08/12 1425 AC 08/12 IV 2303 Mirtazapine 15 MG QPM 08/12 2200 AC 08/12 PO 2303 Multivitamins 1 TAB DAILY 08/13 1000 AC Therapeutic PO Patient Medication 1 UNIT ONE NR 08/12 1530 DC Teaching ED 08/12 1600 Patient Medication 1 UNIT ONE NR 08/12 1530 DC Teaching ED 08/12 1600 Patient Medication 1 UNIT ONE NR 08/12 1530 DC Teaching ED 08/12 1600 Senna/Docusate Sodium 1 TAB BID PRN 08/12 1430 AC PO Trazodone HCl 25 MG AT BEDTIME 08/12 2200 AC 08/12 PO 2303 Review of Systems Review of Systems: Review of systems: No fever. No chills. No rash. No tremor. All other systems are reviewed and are noted to be negative. 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 FH: myocardial infarction MOTHER, , Age 54; Cause: Unknown cause of morbidity or mortality. Psychosocial History Where Do You Live? Long-Term Facility Who Do You Live With? spouse (prior to 05/11/16; in [place]), self Services at Home: Home Health Aide (prior to 05/11/16; in [place]) Primary Language: Turkmen, Yakut Smoking Status: Former Smoker ETOH Use: denies use, 6 Illicit Drug Use: denies illicit drug use Living Will? no Power of Fiber Optic Assembler/HCP? yes Name of POA/HCP: pt's son, Kamlesh Todd [phone] Functional Ability ADLs Independent: eating, toileting. Needs Assist: dressing, bathing. Ambulation: independent IADLs Independent: shopping, housework, finances, food prep, telephone, medication admin. Needs Assist: transportation. ECHO Results (as available) Report: Septal wall was hypokinetic. Inferior wall was akinetic. Inferolateral wall was akinetic. Exam & Diagnostic Data Vital Signs and I&O Vital Signs Date Time Temp Pulse Resp B/P Pulse O2 O2 Flow FiO2 Ox Delivery Rate 08/12 2303 100 150/70 08/12 2303 100 150/70 08/12 2004 Nasal 3.0L Cannula 08/12 1730 98.7 99 20 122/70 90 Nasal 3.0L Cannula 08/12 1715 Nasal 3.0L Cannula 08/12 1600 97.8 75 22 137/71 93 Nasal 4.0L Cannula 08/12 1423 97.0 80 16 141/73 95 Nasal 3.0L Cannula 08/12 1346 97.6 74 22 134/70 92 Nasal 4.0L Cannula 08/12 1224 75 12 143/79 94 Nasal 3.0L Cannula 08/12 1141 92 Nasal 4.0L Cannula 08/12 1120 94 Nasal 4.0L Cannula 08/12 1109 96.8 81 20 165/79 94 Nasal 4.0L Cannula Intake & Output 08/13 0800 08/13 0000 08/12 1600 08/12 0808/12 0000 08/11 1600 Intake Total 0 Output Total 400 Balance -400 0 Intake, Oral 0 Output, Urine 400 Patient 155 lb 154 lb Weight Physical Exam: Gen: The patient is in no acute distress HEENT: Normal nose, ears, and oropharynx. Pupils equal bilaterally. Conjunctiva normal. Neck: Supple with no JVD, no masses, and no thyromegaly Lungs: Bilateral rales with normal respiratory effort Heart: RRR, S1, S2, 2/6 systolic murmur. 2+ peripheral edema, 2+ pulses in the lower extremities bilaterally Abdomen: Soft, nontender, no masses. No hepatomegaly. No splenomegaly Extremities: No clubbing or cyanosis. Normal muscle strength in the upper and lower extremities. Skin: Normal skin turgor with no skin ulcers or lesions noted. Neuro: Cranial nerves intact. Sensation intact Psych: Alert and oriented 3 with appropriate affect Labs/Regis Results: Laboratory Tests 08/12 08/12 2030 1156 Chemistry Sodium (137 - 145 mmol/L) 139 Potassium (3.5 - 5.1 mmol/L) 5.4 H Chloride (98 - 107 mmol/L) 100 Carbon Dioxide (22 - 30 mmol/L) 29 Anion Gap (5 - 16) 10 BUN (9 - 20 mg/dL) 62 H Creatinine (0.7 - 1.2 mg/dL) 1.7 H Estimated GFR (>60 ml/min) 40 L BUN/Creatinine Ratio (7 - 25 %) 36.5 H Glucose (65 - 99 mg/dL) 165 H Calcium (8.4 - 10.2 mg/dL) 8.3 L Total Bilirubin (0.2 - 1.3 mg/dL) 1.9 H AST (17 - 59 U/L) 48 ALT (21 - 72 U/L) 71 Alkaline Phosphatase (< 127 U/L) 94 Troponin I (<0.11 ng/ml) 0.09 0.09 [id number] Pept (<125 pg/mL) 37967 H Total Protein (6.3 - 8.2 g/dL) 6.6 Albumin (3.5 - 5.0 g/dL) 2.6 L Globulin (1.9 - 4.2 gm/dL) 4.0 Albumin/Globulin Ratio (1.1 - 2.2 %) 0.7 L Hematology CBC w Diff MAN DIFF ORDERED WBC (4.8 - 10.8 /CUMM) 6.9 RBC (4.70 - 6.10 /CUMM) 4.67 L Hgb (14.0 - 18.0 G/DL) 11.4 L Hct (42 - 52 %) 36.4 L MCV (80.0 - 94.0 FL) 77.9 L MCH (27.0 - 31.0 PG) 24.3 L RDW (11.5 - 14.5 %) 26.0 H Plt Count (130 - 400 /CUMM) 226 MPV (7.4 - 10.4 FL) 9.5 Gran % (42.2 - 75.2 %) 87.1 H Lymphocytes % (20.5 - 51.1 %) 4.9 L Monocytes % (1.7 - 9.3 %) 6.8 Eosinophils % (0 - 5 %) 1.1 Basophils % (0.0 - 2.0 %) 0.1 Absolute Granulocytes (1.4 - 6.5 /CUMM) 6.0 Absolute Lymphocytes (1.2 - 3.4 /CUMM) 0.3 L Absolute Monocytes (0.10 - 0.60 /CUMM) 0.5 Absolute Eosinophils (0.0 - 0.7 /CUMM) 0.1 Absolute Basophils (0.0 - 0.2 /CUMM) 0 Platelet Estimate (ADEQUATE) VERIFIED BY SMEAR Polychromasia 1+ Hypochromic-Microcytic 2+ Poikilocytosis 1+ Anisocytosis 1+ Microcytic Cells 1+ Ovalocytes 1+ PUBS MCHC (33.0 - 37.0 G/DL) 31.2 L 08/12 1133 Blood Gas pH (7.35 - 7.45 PH) 7.33 L pCO2 (35 - 45 TORR) 49 H pO2 (80 - 100 TORR) 79 L HCO3 (21 - 28 MEQ/L) 25 ABG O2 Sat (Measured) (>96.0 %) 93.0 L P-50 (Temp Corrected) N Carboxyhemoglobin (1.5 - 5.0 %) 2.0 O2 Concentration % 4LPM O2 Delivery Method NC Miscellaneous Phlebotomy Draw Site RIGHT BRACHIAL Diagnostic Data EKG Results EKG tracing is independently reviewed, and reveals atrial fibrillation with ventricular paced complexes and intraventricular conduction delay CXR Results Chest x-ray: Cardiomegaly and congestive heart failure. Interstitial edema is evident. Persistent bilateral pleural effusions (left remaining larger than right). The increased patchy opacities in lower lung zones are nonspecific and could reflect presence of atelectasis, edema and/or infiltrates. Other Results Echocardiogram July 26, 2016: Severely reduced left and right ventricular systolic function. Moderate Mitral and Tricuspid regurgitation. Moderate Pulmonary hypertension. Assessment/Plan Assessment/Plan 1. CAD status CABG 2. Atrial fibrillation 3. Acute on chronic HFrEF 4. Peripheral arterial disease 5. History of CVA Plan: 1. Lasix 40 milligrams p.o. b.i.d. 2. Monitor intake and output with daily weights 3. Agree with venous Doppler study his left upper extremity to rule DVT 4. Check basic metabolic profile daily Consult Acknowledgment - Thank you for your consult request.
[2016-08-12 23:00] VITALS: BP 150/70
--- NOTE | 2016-08-13 07:28 | NUR ---
LATE ENTRY AROUND 0500 PT HAD A 4 BEAT RUN OF [place]. MD EDDY NOTIFIED. PT SLEEPING. BP 144/72, HR 87, O2 SAT 93% ON 3.5L.
[2016-08-13 09:05] VITALS: BP 126/64
--- NOTE | 2016-08-13 09:44 | PN- Att Addend ---
Attending Addendum Attending Brief Note Attending note. Patient is doing poorly looks ill currently short of breath. On oxygen Admitted for chronic systolic heart failure. On IV Lasix with a history of chronic CKG stage III. S1-S2 is normal Lungs shows bibasilar crackles with diminished breath sounds both bases Chest x-ray shows congestive heart failure Creatinine is 1.9. Assessment Chronic systolic heart failure with a severely reduced the left ventricle function 's history of severe COPD CKG stage III. Plan continue IV Lasix Discussed with son who is the POA about comfort care. As patient has been multiple patient has had multiple admissions to the hospital.
--- NOTE | 2016-08-13 13:33 | PN- Cardiology ---
Subjective Subjective: Shortness of breath improving. No chest pain. No palpitations. No diaphoresis. No nausea or vomiting. Objective Vital Signs and I&Os Vital Signs Date Time Temp Pulse Resp B/P Pulse O2 O2 Flow FiO2 Ox Delivery Rate 08/13 0956 82 126/64 08/13 0956 82 126/64 08/13 0956 82 126/64 08/13 0916 97 Nasal 3.5L Cannula 08/13 0905 97.6 82 20 126/64 99 Nasal 3.5L Cannula 08/13 0800 Nasal 3.5L Cannula 08/13 0000 95 Nasal 3.5L Cannula 08/12 2303 100 150/70 08/12 2303 100 150/70 08/12 2300 97.6 100 18 150/70 95 Nasal 3.5L Cannula 08/12 2005 Nasal 3.0L Cannula 08/12 1730 98.7 99 20 122/70 90 Nasal 3.0L Cannula 08/12 1715 Nasal 3.0L Cannula 08/12 1600 97.8 75 22 137/71 93 Nasal 4.0L Cannula 08/12 1423 97.0 80 16 141/73 95 Nasal 3.0L Cannula 08/12 1346 97.6 74 22 134/70 92 Nasal 4.0L Cannula Intake & Output 08/13 1600 08/13 0800 08/13 0000 08/12 1600 08/12 0800 08/12 0000 Intake Total 220 220 0 Output Total 200 700 Balance 20 -480 0 Intake, Oral 220 220 0 Output, Urine 200 700 Patient 155 lb 154 lb Weight Physical Exam: Gen: The patient is in no acute distress HEENT: Normal nose, ears, and oropharynx. Pupils equal bilaterally. Conjunctiva normal. Neck: Supple with no JVD, no masses, and no thyromegaly Lungs: Bilateral rales with normal respiratory effort Heart: RRR, S1, S2, 2/6 systolic murmur. 2+ peripheral edema, 2+ pulses in the lower extremities bilaterally Abdomen: Soft, nontender, no masses. No hepatomegaly. No splenomegaly Extremities: No clubbing or cyanosis. Normal muscle strength in the upper and lower extremities. Skin: Normal skin turgor with no skin ulcers or lesions noted. Current Medications: Current Medications Sig/Bang Start time Last Medication Dose Route Stop Time Status Admin Albuterol Sulfate 3 ML EVERY 4 HRS/AWAKE 08/13 0800 AC 08/13 INH 1303 Apixaban 2.5 MG BID 08/12 2200 AC 08/13 PO 0957 Aspirin Buffered 81 MG DAILY 08/13 1000 AC 08/13 PO 0956 Budesonide 0.25 MG BID 08/12 1430 AC 08/12 INH 2304 Carvedilol 3.125 MG BID 08/12 2200 AC 08/13 PO 0956 Digoxin 0.125 MG Q48 08/14 1000 AC PO Folic Acid 1 MG DAILY 08/13 1000 AC 08/13 PO 0956 Furosemide 40 MG 7:30 AM, & 4:30 PM 08/13 1630 AC PO Furosemide 40 MG 7:30 AM, & 4:30 PM 08/12 1630 AC 08/13 IV 08/13 1629 0653 Hydralazine HCl 25 MG BID 08/12 2200 AC 08/13 PO 0956 Insulin Aspart 0 TIDAC 08/13 0800 AC 08/13 SC 1225 Insulin Detemir 6 UNITS QPM 08/12 2200 AC 08/12 SC 2303 Ipratropium [place] 2.5 ML EVERY 4 HRS/AWAKE 08/13 0800 AC 08/13 INH 1304 Ipratropium [place] 2.5 ML ONCE ONE 08/12 1430 DC INH 08/12 1431 Isosorbide 30 MG DAILY 08/13 1000 AC 08/13 Mononitrate PO 0956 Melatonin 3 MG AT BEDTIME 08/13 2200 AC PO Melatonin 5 MG .STK-MED ONE 08/13 0024 DC PO 08/13 0025 Methylprednisolone 0 .STK-MED ONE 08/12 1657 DC .ROUTE Methylprednisolone 40 MG Q8 08/12 1425 AC 08/13 IV 0602 Mirtazapine 15 MG QPM 08/12 2200 AC 08/12 PO 2303 Multivitamins 1 TAB DAILY 08/13 1000 AC 08/13 Therapeutic PO 0957 Patient Medication 1 UNIT 1630 08/13 1630 AC Teaching ED 08/13 1631 Patient Medication 1 UNIT ONE NR 08/12 1530 FL Teaching ED 08/12 1600 Patient Medication 1 UNIT ONE NR 08/12 1530 FL Teaching ED 08/12 1600 Patient Medication 1 UNIT ONE NR 08/12 1530 FL Teaching ED 08/12 1600 Senna/Docusate Sodium 1 TAB BID PRN 08/12 1430 AC PO Trazodone HCl 25 MG AT BEDTIME 08/12 2200 AC 08/12 PO 2303 Results Last 48 Hrs of Labs/Mics: Laboratory Tests 08/13/16 0640: Anion Gap 11, Estimated GFR 35 L, BUN/Creatinine Ratio 35.3 H, Magnesium 2.1 08/12/16 2030: Troponin I 0.09 08/12/16 1156: Anion Gap 10, Estimated GFR 40 L, BUN/Creatinine Ratio 36.5 H, Glucose 165 H, Calcium 8.3 L, Total Bilirubin 1.9 H, AST 48, ALT 71, Alkaline Phosphatase 94, Troponin I 0.09, Kpr-V-[place] Pept 28488 H, Total Protein 6.6, Albumin 2.6 L, Globulin 4.0, Albumin/Globulin Ratio 0.7 L, CBC w Diff MAN DIFF ORDERED, RBC 4.67 L, MCV 77.9 L, MCH 24.3 L, RDW 26.0 H, MPV 9.5, Gran % 87.1 H, Lymphocytes % 4.9 L, Monocytes % 6.8, Eosinophils % 1.1, Basophils % 0.1, Absolute Granulocytes 6.0, Absolute Lymphocytes 0.3 L, Absolute Monocytes 0.5, Absolute Eosinophils 0.1, Absolute Basophils 0, Platelet Estimate VERIFIED BY SMEAR, Polychromasia 1+, Hypochromic-Microcytic 2+, Poikilocytosis 1+, Anisocytosis 1+, Microcytic Cells 1+, Ovalocytes 1+, PUBS MCHC 31.2 L 08/12/16 1133: pH 7.33 L, pCO2 49 H, pO2 79 L, HCO3 25, ABG O2 Sat (Measured) 93.0 L, P-50 (Temp Corrected) N, Carboxyhemoglobin 2.0, O2 Concentration % 4LPM, O2 Delivery Method NC, Phlebotomy Draw Site RIGHT BRACHIAL Assessment/Plan Assessment/Plan 1. CAD status CABG 2. Atrial fibrillation 3. Acute on chronic HFrEF 4. Peripheral arterial disease 5. History of CVA 6. Chronic renal insufficiency Recommendations: * Continue IV Lasix * Monitor input and output * Check basic metabolic profile daily Continue telemetry? Yes
[2016-08-13 15:30] VITALS: BP 120/60
--- NOTE | 2016-08-13 16:00 | ULTRASOUND REPORT ---
EXAMINATION: US TRIPLEX SCANNING UPPER EXTREMITY, LEFT CLINICAL INFORMATION: Left upper extremity swelling. COMPARISON: None. TECHNIQUE: Color-flow triplex imaging with spectral analysis and compression Doppler were performed on the left upper extremity. FINDINGS: Respiratory variation, normal compression and augmented flow are noted throughout the left upper extremity. The visualized left internal jugular, subclavian, axillary, brachial, basilic and cephalic veins demonstrate no evidence of deep venous thrombosis. IMPRESSION: Normal triplex scan without evidence of deep venous thrombosis involving the left upper extremity.
[2016-08-13 22:00] VITALS: BP 120/70
--- NOTE | 2016-08-14 07:11 | PN- Att Addend ---
Attending Addendum Attending Brief Note Intake & Output 08/14 0800 08/14 0000 08/13 1600 Intake Total 420 551 Output Total 450 Balance 420 101 Intake, IV 11 Intake, Oral 420 540 Output, Urine 450 Current Medications Sig/Bang Start time Last Medication Dose Route Stop Time Status Admin Albuterol Sulfate 3 ML EVERY 4 HRS/AWAKE 08/13 0800 AC 08/13 INH 2200 Apixaban 2.5 MG BID 08/12 2200 AC 08/13 PO 2128 Aspirin Buffered 81 MG DAILY 08/13 1000 AC 08/13 PO 0956 Budesonide 0.25 MG BID 08/12 1430 AC 08/13 INH 2200 Carvedilol 3.125 MG BID 08/12 2200 AC 08/13 PO 2129 Digoxin 0.125 MG Q48 08/14 1000 AC PO Folic Acid 1 MG DAILY 08/13 1000 AC 08/13 PO 0956 Furosemide 40 MG 7:30 AM, & 4:30 PM 08/13 1630 AC 08/14 PO 0620 Furosemide 40 MG 7:30 AM, & 4:30 PM 08/12 1630 DC 08/13 IV 08/13 1629 0653 Hydralazine HCl 25 MG BID 08/12 2200 AC 08/13 PO 2129 Insulin Aspart 0 TIDAC 08/13 0800 AC 08/13 SC 1826 Insulin Detemir 6 UNITS QPM 08/12 2200 AC 08/13 SC 2127 Ipratropium [place] 2.5 ML EVERY 4 HRS/AWAKE 08/13 0800 AC 08/13 INH 2200 Isosorbide 30 MG DAILY 08/13 1000 AC 08/13 Mononitrate PO 0956 Melatonin 3 MG AT BEDTIME 08/13 2200 AC 08/13 PO 2128 Methylprednisolone 40 MG Q8 08/12 1425 AC 08/14 IV 0600 Mirtazapine 15 MG QPM 08/12 2200 AC 08/13 PO 2129 Multivitamins 1 TAB DAILY 08/13 1000 AC 08/13 Therapeutic PO 0957 Patient Medication 1 UNIT 1630 08/13 1630 DC 08/13 Teaching ED 08/13 1631 1556 Senna/Docusate Sodium 1 TAB BID PRN 08/12 1430 AC PO Sodium Polystyrene 60 ML ONCE ONE 08/13 1500 DC 08/13 Sulfonate PO 08/13 1501 1551 Trazodone HCl 25 MG AT BEDTIME 08/12 2200 AC 08/13 PO 2128 Vital Signs Date Time Temp Pulse Resp B/P Pulse O2 O2 Flow FiO2 Ox Delivery Rate 08/13 2129 64 120/70 08/13 2129 64 120/70 08/13 1808 95 Nasal 3.0L Cannula 08/13 1530 97.6 66 20 120/60 93 Nasal 2.0L Cannula 08/13 0956 82 126/64 08/13 0956 82 126/64 08/13 0956 82 126/64 08/13 0916 97 Nasal 3.5L Cannula 08/13 0905 97.6 82 20 126/64 99 Nasal 3.5L Cannula 08/13 0800 Nasal 3.5L Cannula Intake & Output 08/14 0800 08/14 0000 08/13 1600 Intake Total 420 551 Output Total 450 Balance 420 101 Intake, IV 11 Intake, Oral 420 540 Output, Urine 450 Attending note. Patient is still weak short of breath. He looks very ill Patient is feeling very poorly. On oxygen JVD is not raised S1-S2 is normal Lungs shows bibasilar crackles. Extremities bipedal edema. Assessment Chronic systolic heart failure with ejection fraction of 15%. Patient tells eschar history of CKG At least reaches maximum medical improvement Discussed stress the condition with his son consider making the patient comfort care. He will get back to me today about the CODE STATUS. And further management
--- NOTE | 2016-08-14 07:26 | PN- Housestaff ---
Subjective Follow-up For: 1. Acute exacerbation of HFREF 2. Possible COPD exacerbation 3. Atrial fibrillation 4. Chronic kidney disease Complaints: pain scale (0-10) Tele-Events Since Last Visit: Atrial fibrillation Single pacing Rate 74-85 4 beat V. tach after midnight Subjective: Patient was seen and examined this morning. He is alert awake and oriented to time place and person. No acute events noticed overnight.. He looks very ill Patient still complains of shortness of breath. He denied any chest pain, racing of heart. Denied any fever, chills, nausea, vomiting, abdominal pain, change in bladder or bowel habits. Worsening lower extremity edema. Vitals were stable. He is afebrile, rate 64, respiratory rate 20, blood pressure 120/70, saturating at 95% on 3 L oxygen Review of Systems Constitutional: Denies: see HPI. Objective Last 24 Hrs of Vital Signs/I&O Vital Signs Date Time Temp Pulse Resp B/P Pulse O2 O2 Flow FiO2 Ox Delivery Rate 08/14 1118 94 08/14 1116 7 138/68 08/14 1116 77 138/68 08/14 1116 7 138/68 08/14 0924 98.2 83 20 128/70 96 Nasal 3.0L Cannula 08/14 0853 99 Nasal 3.0L Cannula 08/14 0000 Nasal Cannula 08/13 2200 98.0 80 20 120/70 95 Nasal Cannula 08/13 2129 64 120/70 08/13 2129 64 120/70 08/13 1808 95 Nasal 3.0L Cannula 08/13 1530 97.6 66 20 120/60 93 Nasal 2.0L Cannula Intake & Output 08/14 1600 08/14 0800 08/14 0000 Intake Total 200 620 Output Total Balance 200 620 Intake, Oral 200 620 Patient 70.987 kg 70.987 kg 70.987 kg Weight Physical Exam General Appearance: Alert, Oriented X3, Cooperative, No Acute Distress Skin: No Rashes, No Breakdown HEENT: Atraumatic, Mucous Membr. moist/pink Neck: Supple, No JVD Lymphatic: Cervical nl Cardiovascular: Normal S1, Normal S2, irregular rhythm Lungs: decreased air entry and crackles bilaterally Abdomen: Normal Bowel Sounds, Soft, No Tenderness Extremities: No Clubbing, No Cyanosis, bilateral pitting edema Vascular: Normal Pulses Current Medications: Current Medications Sig/Bang Start time Last Medication Dose Route Stop Time Status Admin Albuterol Sulfate 3 ML EVERY 4 HRS/AWAKE 08/13 0800 AC 08/14 INH 1215 Apixaban 2.5 MG BID 08/12 2200 AC 08/14 PO 1116 Aspirin Buffered 81 MG DAILY 08/13 1000 AC 08/14 PO 1116 Budesonide 0.25 MG BID 08/12 1430 AC 08/14 INH 0850 Carvedilol 3.125 MG BID 08/12 2200 AC 08/14 PO 1116 Digoxin 0.125 MG Q48 08/14 1000 AC 08/14 PO 1118 Folic Acid 1 MG DAILY 08/13 1000 AC 08/14 PO 1116 Furosemide 40 MG 7:30 AM, & 4:30 PM 08/13 1630 AC 08/14 PO 0620 Furosemide 40 MG 7:30 AM, & 4:30 PM 08/12 1630 DC 08/13 IV 08/13 1629 0653 Hydralazine HCl 25 MG BID 08/12 2200 AC 08/14 PO 1116 Insulin Aspart 0 TIDAC 08/13 0800 AC 08/14 SC 1256 Insulin Detemir 6 UNITS QPM 08/12 2200 AC 08/13 SC 2127 Ipratropium [place] 2.5 ML EVERY 4 HRS/AWAKE 08/13 0800 AC 08/14 INH 1215 Isosorbide 30 MG DAILY 08/13 1000 AC 08/14 Mononitrate PO 1116 Melatonin 3 MG AT BEDTIME 08/13 2200 AC 08/13 PO 2128 Methylprednisolone 40 MG Q8 08/12 1425 AC 08/14 IV 0600 Mirtazapine 15 MG QPM 08/12 2200 AC 08/13 PO 2129 Multivitamins 1 TAB DAILY 08/13 1000 AC 08/14 Therapeutic PO 1117 Patient Medication 1 UNIT 1630 08/13 1630 DC 08/13 Teaching ED 08/13 1631 1556 Senna/Docusate Sodium 1 TAB BID PRN 08/12 1430 AC PO Sodium Polystyrene 60 ML ONCE ONE 08/13 1500 DC 08/13 Sulfonate PO 08/13 1501 1551 Trazodone HCl 25 MG AT BEDTIME 08/12 2200 AC 08/13 PO 2128 Last 24 Hrs of Lab/Regis Results Last 24 Hrs of Labs/Mics: Laboratory Tests 08/14/16 0630: Anion Gap 13, Estimated GFR 33 L, BUN/Creatinine Ratio 42.0 H, Magnesium 2.3, CBC w Diff MAN DIFF ORDERED, RBC 4.94, MCV 77.8 L, MCH 24.2 L, RDW 25.5 H, MPV 9.2, Gran % 94.5 H, Lymphocytes % 2.9 L, Monocytes % 2.5, Eosinophils % 0.1, Basophils % 0 L, Absolute Granulocytes 10.2 H, Absolute Lymphocytes 0.3 L, Absolute Monocytes 0.3, Absolute Eosinophils 0, Absolute Basophils 0, Platelet Estimate VERIFIED BY SMEAR, Polychromasia 1+, Hypochromic-Microcytic 2+ , Poikilocytosis 1+, Basophilic Stippling SLIGHT, Anisocytosis 2+, Microcytic Cells 1+, Target Cells , PUBS MCHC 31.1 L Assessment/Plan Assessment: This is a 75-year-old male with past medical history significant for HFREF secondary to ischemic cardiomyopathy status post biventricular AICD, atrial fibrillation on eliqus and digoxin, coronary artery disease status post CABG and triple bypass, COPD on 2 L oxygen, systolic congestive heart failure on Lasix, type 2 diabetes mellitus, insomnia, anxiety, depression, GERD, peripheral vascular disease, endovascular abdominal aortic repair, right MCA stroke was brought to [facility] emergency department from [facility] for worsening shortness of breath, bilateral lower extremity edema, decreased oxygen saturations for one day prior to presentation. Of note patient was discharged on 07/30/2016 after treated for acute decompensated heart failure. He was discharged to [facility] on Lasix 40 mg twice a day. Last echocardiogram done in July 2016 showed ejection fraction 15-20% with systolic failure, moderate pulmonary hypertension. Vitals on admission-afebrile, heart rate 80, respiratory rate 20, blood pressure 165/70, saturating at 94% on 4 L. -Pertinent labs-CBC normal, sodium 139, potassium 5.4, BUN 62, creatinine 1.7. Liver function tests-bilirubin 1.9, ALT 71, AST 48, alkaline phosphatase 94 Troponins negative on admission ProBNP 66111. ABG 7.33, 25, 49 EKG atrial flutter fibrillation rate 88. No ST-T wave changes. Chest x-ray showed cardiomegaly and congestive heart failure interstitial edema and bilateral pleural effusions left greater than right Patient received IV Lasix 40 mg once in the emergency room. Problem list 1. Acute exacerbation of HFREF 2. Possible COPD exacerbation 3. Atrial fibrillation 4. Chronic kidney disease 5. Coronary artery disease status post CABG 6. Type 2 diabetes mellitus 7. Insomnia 8. Anxiety 9. GERD 10. Depression Acute exacerbation of systolic congestive heart failure(hfref) Patient was brought to the emergency department with worsening shortness of breath and decreased oxygen saturations on 2 L oxygen. Increased weight gain and bilateral lower extremity edema was found. He was found lethargic and wheezing. ProBNP elevated on admission. Chest x-ray showed cardiomegaly and congestive heart failure, bilateral pleural effusions left greater than right. Of note patient was discharged on 07/30/2016 after being treated for acute systolic congestive heart failure. He was discharged on carvedilol, hydralazine ,IMDUR, Lasix 40 twice a day, digoxin. * Admitted to telemetry floor for treatment of acute CHF exacerbation * Monitor vitals every shift * Maintain oxygen saturation above 92% * Provide supplemental oxygen-saturating at 92% on 3 L now * Strict ins and outs * Daily weights * Give IV Lasix 40 bd. * Monitor BEP. * Cardiology consulted * Echo was done recently. * Continue Coreg 3.125 twice a day * Continue isosorbide mononitrate 30 mg daily * Continue home dose of hydralazine 25 mg twice a day. * First set of EKG and troponins negative * Serial EKG and troponins negative Possible COPD exacerbation Presented with worsening shortness of breath and wheezing. He was lethargic and wheezing. ABGs in the emergency room showed pH 7.33, bicarbonate 25, carbon dioxide 49, respiratory acidosis with compensation. Of note patient is on 2 L oxygen at nursing care facility. He is requiring 3L now. * Continue providing oxygen supplementation * Maintain oxygen saturation above 90% * Monitor vitals closely * Total respiratory care * Methylprednisolone 40 mg every 8hrs * Budesonide * albuterol/ipratropium * Blood cultures * Sputum cultures Hyperkalemia Potassium 5.4 on admission No EKG changes We'll monitor closely BEP in the morning- k 5.2 Chronic kidney disease Baseline creatinine 1.5-1.8. Creatinine on admission 1.7, today cr is 2 Atrial fibrillation Continue home dose of eliqus 2.5 mg twice a day Continue digoxin 0.125 mg every 48 hours Coronary artery disease Status post CABG and triple bypass Continue baby aspirin Hypertension Continue home dose of Coreg hydralazine and isosorbide mono nitrate both for hypertension and CHF Type 2 diabetes mellitus Patient is on NovoLog sliding scale and Levemir 6 units every night for type 2 diabetes mellitus * Accu-Cheks * Continue Levemir * Continue NovoLog sliding scale Insomnia Continue mirtazapine every night anxiety Continue trazodone 25 mg GERD Continue pantoprazole 40 daily Patient is full code Mild pain pathway Tylenol Heart healthy diet DVT prophylaxis-patient is on eliqus Problem List: 1. CONGESTIVE HEART FAILURE Pain Ratin Pain Location: none Pain Goal: Remain pain free Pain Plan: tylinol Tomorrow's Labs & Rationales: CBC in the setting of leukocytosis BEp in the setting of hyperkalemia and worsening creatinine
[2016-08-14 08:04] LABS: ABSOLUTE BASOPHIL COUNT 0 /CUMM (0.0-0.2); ABSOLUTE EOSINOPHIL COUNT 0 /CUMM (0.0-0.7); ABSOLUTE GRANULOCYTE CT 10.2 /CUMM (1.4-6.5); ABSOLUTE LYMPH COUNT 0.3 /CUMM (1.2-3.4); ABSOLUTE MONOCYTE COUNT 0.3 /CUMM (0.10-0.60); BASOPHIL % 0 % (0.0-2.0); EOSINOPHIL % 0.1 % (0-5); GRANULOCYTE % 94.5 % (42.2-75.2); HEMATOCRIT 38.4 % (42-52); MEAN CORPUSCULAR HGB 24.2 PG (27.0-31.0); MEAN CORPUSCULAR HGB CONC 31.1 G/DL (33.0-37.0); MEAN CORPUSCULAR VOLUME 77.8 FL (80.0-94.0); MEAN PLATELET VOLUME 9.2 FL (7.4-10.4); RBC DISTRIBUTION WIDTH 25.5 % (11.5-14.5); RED BLOOD CELL CT 4.94 /CUMM (4.70-6.10)
[2016-08-14 08:32] LABS: PLATELET COUNT 343 /CUMM (130-400); WHITE BLOOD CELL COUNT 10.8 /CUMM (4.8-10.8)
[2016-08-14 09:24] VITALS: BP 128/70
--- NOTE | 2016-08-14 11:41 | PN- Cardiology ---
Subjective Subjective: Patient still complains of shortness of breath but denies chest pain. Review of Systems: Eyes no blurred or double vision Ears no deafness or ringing Nose and throat no recurrent sinusitis Lungs per history of present illness Heart per history of present illness Abdomen no nausea vomiting Musculoskeletal occasional muscle and joint pains Psych no anxiety or depression Neuro without recurrent headache or seizures Endocrine no heat or cold intolerance Objective Vital Signs and I&Os Vital Signs Date Time Temp Pulse Resp B/P Pulse O2 O2 Flow FiO2 Ox Delivery Rate 08/14 1118 94 08/14 1116 7 138/68 08/14 1116 77 138/68 08/14 1116 7 138/68 08/14 0924 98.2 83 20 128/70 96 Nasal 3.0L Cannula 08/14 0853 99 Nasal 3.0L Cannula 08/14 0000 Nasal Cannula 08/13 2200 98.0 80 20 120/70 95 Nasal Cannula 08/13 2129 64 120/70 08/13 2129 64 120/70 08/13 1808 95 Nasal 3.0L Cannula 08/13 1530 97.6 66 20 120/60 93 Nasal 2.0L Cannula Intake & Output 08/14 1600 08/14 0800 08/14 0000 08/13 1600 08/13 0800 08/13 0000 Intake Total 200 620 551 220 220 Output Total 450 200 700 Balance 200 620 101 20 -480 Intake, IV 11 Intake, Oral 200 620 540 220 220 Output, Urine 450 200 700 Patient 156 lb 157 lb 157 lb 155 lb Weight Physical Exam: Patient is a well-developed well-nourished male appearing in no acute distress HEENT is unremarkable Neck is supple there is no JVD Lungs bibasilar Rales Heart irregular rhythm S1 and S2 are normal no gallops or rubs 1/6 soft ejection murmur at the left sternal border Abdomen bowel sounds positive Extremities 1+ edema Assessment/Plan Assessment/Plan 1. Acute on chronic systolic heart failure 2. Ischemic cardiomyopathy ejection fraction 15-20% status post AICD 3. Atrial fibrillation on Eliquis 4. Coronary disease by history status post coronary bypass surgery 5. COPD 6. Diabetes 7. Acute on Chronic renal insufficiency Recommendations 1. I would continue to diurese monitoring renal function closely 2. Dr. Moran's note stated that the patient's family is considering change in his CODE STATUS to comfort measures. His overall prognosis is poor. Continue telemetry? Yes
[2016-08-14 16:30] VITALS: BP 126/64
[2016-08-14 22:55] VITALS: BP 132/60
--- NOTE | 2016-08-15 07:18 | PN- Att Addend ---
Attending Addendum Attending Brief Note Intake & Output 08/15 0808/15 0000 08/14 1600 Intake Total 660 480 Output Total Balance 660 480 Intake, IV 0 Intake, Oral 660 480 Number 0 1 Bowel Movements Patient 156 lb Weight Laboratory Tests 08/15 0550 Chemistry Sodium Pending Potassium Pending Chloride Pending Carbon Dioxide Pending Anion Gap Pending BUN Pending Creatinine Pending BUN/Creatinine Ratio Pending Hematology CBC w Diff Pending WBC Pending RBC Pending Hgb Pending Hct Pending MCV Pending MCH Pending RDW Pending Plt Count Pending MPV Pending PUBS MCHC Pending Vital Signs Date Time Temp Pulse Resp B/P Pulse O2 O2 Flow FiO2 Ox Delivery Rate 08/15 0119 98 Nasal 3.0L Cannula 08/15 0000 Nasal 3.0L Cannula 08/14 2255 97.9 70 20 132/60 91 Nasal Cannula 08/14 2141 75 120/64 08/14 2140 75 120/64 08/14 1630 97.8 81 22 126/64 92 Nasal 3.0L Cannula 08/14 1600 92 Nasal 3.0L Cannula 08/14 1118 94 08/14 1116 7 138/68 08/14 1116 77 138/68 08/14 1116 7 138/68 08/14 0924 98.2 83 20 128/70 96 Nasal 3.0L Cannula 08/14 0853 99 Nasal 3.0L Cannula 08/14 0800 97 Nasal 3.5L Cannula Intake & Output 08/15 0800 08/15 0000 08/14 1600 Intake Total 660 480 Output Total Balance 660 480 Intake, IV 0 Intake, Oral 660 480 Number 0 1 Bowel Movements Patient 156 lb Weight Attending note. Gradual decline in patient's condition. Patient feels lousy Patient has got severe systolic heart failure with a very poor ejection fraction earlier Lasix not much improvement. Need input from cardiology as to the prognosis. Discusses patient's condition with the son and want to make him comfort care. Patient also has interstitial lung disease and on chronic oxygen Patient is severely deconditioned and also got chronic kidney disease.
--- NOTE | 2016-08-15 07:29 | PN- Housestaff ---
Subjective Follow-up For: 1. Acute exacerbation of HFREF 2. Possible COPD exacerbation 3. Atrial fibrillation 4. Chronic kidney disease Complaints: pain scale (0-10) Tele-Events Since Last Visit: Atrial fibrillation Single pacing Rate 74-85 Subjective: Patient was seen and examined this morning. He is alert awake and oriented to time place and person. No acute events noticed overnight.. He looks very ill Patient still complains of shortness of breath. He denied any chest pain, racing of heart. Denied any fever, chills, nausea, vomiting, abdominal pain, change in bladder or bowel habits. Worsening lower extremity edema. Vitals were stable. He is afebrile, rate 70, respiratory rate 20, blood pressure 132/60 saturating at 98% on 3 L oxygen Review of Systems Constitutional: Denies: see HPI. Objective Last 24 Hrs of Vital Signs/I&O Vital Signs Date Time Temp Pulse Resp B/P Pulse O2 O2 Flow FiO2 Ox Delivery Rate 08/15 1016 98 Nasal 3.0L Cannula 08/15 0953 78 110/60 08/15 0953 78 110/60 08/15 0952 78 110/60 08/15 0823 97.9 78 20 110/60 96 Nasal 3.0L Cannula 08/15 0119 98 Nasal 3.0L Cannula 08/15 0000 Nasal 3.0L Cannula 08/14 2255 97.9 70 20 132/60 91 Nasal Cannula 08/14 2141 75 120/64 08/14 2140 75 120/64 08/14 1630 97.8 81 22 126/64 92 Nasal 3.0L Cannula 08/14 1600 92 Nasal 3.0L Cannula Intake & Output 08/15 1600 08/15 0800 08/15 0000 Intake Total 150 660 Output Total 600 Balance -450 660 Intake, IV 0 0 Intake, Oral 150 660 Number 0 0 Bowel Movements Output, Urine 600 Physical Exam General Appearance: Alert, Oriented X3, Cooperative, No Acute Distress Skin: No Rashes, No Breakdown HEENT: Atraumatic, Mucous Membr. moist/pink Neck: Supple, No JVD Lymphatic: Cervical nl Cardiovascular: Normal S1, Normal S2, No Murmurs Lungs: dec air entry and crackles Abdomen: Normal Bowel Sounds, Soft, No Tenderness Extremities: No Clubbing, No Cyanosis, b/l pitting edema Vascular: Normal Pulses Current Medications: Current Medications Sig/Bang Start time Last Medication Dose Route Stop Time Status Admin Albuterol Sulfate 3 ML EVERY 4 HRS/AWAKE 08/13 0800 AC 08/15 INH 1314 Apixaban 2.5 MG BID 08/12 2200 AC 08/15 PO 0953 Aspirin Buffered 81 MG DAILY 08/13 1000 AC 08/15 PO 0953 Budesonide 0.25 MG BID 08/12 1430 AC 08/15 INH 0904 Carvedilol 3.125 MG BID 08/12 2200 AC 08/15 PO 0953 Digoxin 0.125 MG Q48 08/14 1000 AC 08/14 PO 1118 Folic Acid 1 MG DAILY 08/13 1000 AC 08/15 PO 0953 Furosemide 60 MG 7:30 AM, & 4:30 PM 08/16 0730 AC PO Furosemide 60 MG 7:30 AM, & 4:30 PM 08/15 1630 DC PO Furosemide 60 MG ONCE ONE 08/15 1530 AC IV 08/15 1531 Furosemide 40 MG 7:30 AM, & 4:30 PM 08/13 1630 DC 08/15 PO 0850 Hydralazine HCl 25 MG BID 08/12 2200 AC 08/15 PO 0952 Insulin Aspart 0 TIDAC 08/13 0800 AC 08/15 SC 1207 Insulin Detemir 6 UNITS QPM 08/12 2200 AC 08/14 SC 2141 Ipratropium [place] 2.5 ML EVERY 4 HRS/AWAKE 08/13 0800 AC 08/15 INH 1314 Isosorbide 30 MG DAILY 08/13 1000 AC 08/15 Mononitrate PO 0953 Melatonin 3 MG AT BEDTIME 08/13 220 AC 08/14 PO 2141 Methylprednisolone 40 MG Q8 08/12 1425 AC 08/15 IV 1451 Mirtazapine 15 MG QPM 08/12 2200 AC 08/14 PO 2141 Multivitamins 1 TAB DAILY 08/13 1000 AC 08/15 Therapeutic PO 0953 Senna/Docusate Sodium 1 TAB BID PRN 08/12 1430 AC PO Trazodone HCl 25 MG AT BEDTIME 08/12 220 AC 08/14 PO 2141 Last 24 Hrs of Lab/Regis Results Last 24 Hrs of Labs/Mics: Laboratory Tests 08/15/16 0550: Anion Gap 12, Estimated GFR 35 L, BUN/Creatinine Ratio 47.9 H, CBC w Diff NO MAN DIFF REQ, RBC 4.79, MCV 77.0 L, MCH 24.3 L, RDW 25.4 H, MPV 9.1, Gran % 97.5 H, Lymphocytes % 1.5 L, Monocytes % 0.9 L, Eosinophils % 0.1, Basophils % 0 L, Absolute Granulocytes 10.1 H, Absolute Lymphocytes 0.2 L, Absolute Monocytes 0.1 L, Absolute Eosinophils 0, Absolute Basophils 0, PUBS MCHC 31.6 L Assessment/Plan Assessment: This is a 75-year-old male with past medical history significant for HFREF secondary to ischemic cardiomyopathy status post biventricular AICD, atrial fibrillation on eliqus and digoxin, coronary artery disease status post CABG and triple bypass, COPD on 2 L oxygen, systolic congestive heart failure on Lasix, type 2 diabetes mellitus, insomnia, anxiety, depression, GERD, peripheral vascular disease, endovascular abdominal aortic repair, right MCA stroke was brought to [facility] emergency department from [facility] for worsening shortness of breath, bilateral lower extremity edema, decreased oxygen saturations for one day prior to presentation. Of note patient was discharged on 07/30/2016 after treated for acute decompensated heart failure. He was discharged to [facility] on Lasix 40 mg twice a day. Last echocardiogram done in July 2016 showed ejection fraction 15-20% with systolic failure, moderate pulmonary hypertension. Vitals on admission-afebrile, heart rate 80, respiratory rate 20, blood pressure 165/70, saturating at 94% on 4 L. -Pertinent labs-CBC normal, sodium 139, potassium 5.4, BUN 62, creatinine 1.7. Liver function tests-bilirubin 1.9, ALT 71, AST 48, alkaline phosphatase 94 Troponins negative on admission ProBNP 42849. ABG 7.33, 25, 49 EKG atrial flutter fibrillation rate 88. No ST-T wave changes. Chest x-ray showed cardiomegaly and congestive heart failure interstitial edema and bilateral pleural effusions left greater than right Patient received IV Lasix 40 mg once in the emergency room. Problem list 1. Acute exacerbation of HFREF 2. Possible COPD exacerbation 3. Atrial fibrillation 4. Chronic kidney disease 5. Coronary artery disease status post CABG 6. Type 2 diabetes mellitus 7. Insomnia 8. Anxiety 9. GERD 10. Depression Acute exacerbation of systolic congestive heart failure(hfref) Patient was brought to the emergency department with worsening shortness of breath and decreased oxygen saturations on 2 L oxygen. Increased weight gain and bilateral lower extremity edema was found. He was found lethargic and wheezing. ProBNP elevated on admission. Chest x-ray showed cardiomegaly and congestive heart failure, bilateral pleural effusions left greater than right. Of note patient was discharged on 07/30/2016 after being treated for acute systolic congestive heart failure. He was discharged on carvedilol, hydralazine ,IMDUR, Lasix 40 twice a day, digoxin. * Admitted to telemetry floor for treatment of acute CHF exacerbation * Monitor vitals every shift * Maintain oxygen saturation above 92% * Provide supplemental oxygen-saturating at 92% on 3 L now * Strict ins and outs * Daily weights * Given IV Lasix 60 bd once. lasix changed from 40 to 60 oral bd. * Monitor BEP. * Cardiology consulted * Echo was done recently. * Continue Coreg 3.125 twice a day * Continue isosorbide mononitrate 30 mg daily * Continue home dose of hydralazine 25 mg twice a day. * First set of EKG and troponins negative * Serial EKG and troponins negative Possible COPD exacerbation Presented with worsening shortness of breath and wheezing. He was lethargic and wheezing. ABGs in the emergency room showed pH 7.33, bicarbonate 25, carbon dioxide 49, respiratory acidosis with compensation. Of note patient is on 2 L oxygen at nursing care facility. He is requiring 3L now. * Continue providing oxygen supplementation * Maintain oxygen saturation above 90% * Monitor vitals closely * Total respiratory care * Methylprednisolone 40 mg every 8hrs * Budesonide * albuterol/ipratropium * Blood cultures * Sputum cultures Hyperkalemia Potassium 5.4 on admission No EKG changes We'll monitor closely BEP in the morning- k 5.4 Chronic kidney disease Baseline creatinine 1.5-1.8. Creatinine on admission 1.7, today cr is 1.9 Atrial fibrillation Continue home dose of eliqus 2.5 mg twice a day Continue digoxin 0.125 mg every 48 hours Coronary artery disease Status post CABG and triple bypass Continue baby aspirin Hypertension Continue home dose of Coreg hydralazine and isosorbide mono nitrate both for hypertension and CHF Type 2 diabetes mellitus Patient is on NovoLog sliding scale and Levemir 6 units every night for type 2 diabetes mellitus * Accu-Cheks * Continue Levemir * Continue NovoLog sliding scale Insomnia Continue mirtazapine every night anxiety Continue trazodone 25 mg GERD Continue pantoprazole 40 daily Patient is full code Mild pain pathway Tylenol Heart healthy diet DVT prophylaxis-patient is on eliqus Problem List: 1. [id number] kidney injury 2. Acute exacerbation of CHF (congestive heart failure) 3. Interstitial lung disease Pain Ratin Pain Location: none Pain Goal: Remain pain free Pain Plan: tylinol Tomorrow's Labs & Rationales: bep in the setting of hyperkalemia and ailyn
[2016-08-15 08:08] LABS: ABSOLUTE BASOPHIL COUNT 0 /CUMM (0.0-0.2); ABSOLUTE EOSINOPHIL COUNT 0 /CUMM (0.0-0.7); ABSOLUTE GRANULOCYTE CT 10.1 /CUMM (1.4-6.5); ABSOLUTE LYMPH COUNT 0.2 /CUMM (1.2-3.4); ABSOLUTE MONOCYTE COUNT 0.1 /CUMM (0.10-0.60); BASOPHIL % 0 % (0.0-2.0); EOSINOPHIL % 0.1 % (0-5); HEMATOCRIT 36.9 % (42-52); MEAN CORPUSCULAR HGB 24.3 PG (27.0-31.0); MEAN CORPUSCULAR HGB CONC 31.6 G/DL (33.0-37.0); MEAN PLATELET VOLUME 9.1 FL (7.4-10.4); RBC DISTRIBUTION WIDTH 25.4 % (11.5-14.5); RED BLOOD CELL CT 4.79 /CUMM (4.70-6.10); WHITE BLOOD CELL COUNT 10.4 /CUMM (4.8-10.8)
[2016-08-15 08:23] VITALS: BP 110/60
[2016-08-15 09:11] LABS: GRANULOCYTE % 97.5 % (42.2-75.2); PLATELET COUNT 357 /CUMM (130-400)
--- NOTE | 2016-08-15 15:16 | PN- Cardiology ---
Subjective Subjective: Patient says he feels "blah" but does not endorse specific symptoms today. His sister and granddaughter were present in the room during my interview with him. Objective Vital Signs and I&Os Vital Signs Date Time Temp Pulse Resp B/P Pulse O2 O2 Flow FiO2 Ox Delivery Rate 08/15 1016 98 Nasal 3.0L Cannula 08/15 0953 78 110/60 08/15 0953 78 110/60 08/15 0952 78 110/60 08/15 0823 97.9 78 20 110/60 96 Nasal 3.0L Cannula 08/15 0119 98 Nasal 3.0L Cannula 08/15 0000 Nasal 3.0L Cannula 08/14 2255 97.9 70 20 132/60 91 Nasal Cannula 08/14 2141 75 120/64 08/14 2140 75 120/64 08/14 1630 97.8 81 22 126/64 92 Nasal 3.0L Cannula 08/14 1600 92 Nasal 3.0L Cannula Intake & Output 08/15 1600 08/15 0800 08/15 0000 08/14 1600 08/14 0800 08/14 0000 Intake Total 150 660 480 200 620 Output Total 600 Balance -450 660 480 200 620 Intake, IV 0 0 Intake, Oral 150 660 480 200 620 Number 0 0 1 Bowel Movements Output, Urine 600 Patient 156 lb 157 lb 157 lb Weight Physical Exam: General: no apparent distress. Eyes: No obvious scleral icterus. HEENT: No jugular venous distention or abnormal jugular venous pulsations. Cardiovascular: Normal intensity S1/S2. AICD noted. Respiratory: decreased air entry at the bases Abdomen: Soft, nontender with no guarding or rebound tenderness. Musculoskeletal: No cyanosis noted, 1+ lower extremity edema noted Skin: Warm Current Medications: Current Medications Sig/Bang Start time Last Medication Dose Route Stop Time Status Admin Albuterol Sulfate 3 ML EVERY 4 HRS/AWAKE 08/13 0800 AC 08/15 INH 1314 Apixaban 2.5 MG BID 08/12 2200 AC 08/15 PO 0953 Aspirin Buffered 81 MG DAILY 08/13 1000 AC 08/15 PO 0953 Budesonide 0.25 MG BID 08/12 1430 AC 08/15 INH 0904 Carvedilol 3.125 MG BID 08/12 2200 AC 08/15 PO 0953 Digoxin 0.125 MG Q48 08/14 1000 AC 08/14 PO 1118 Folic Acid 1 MG DAILY 08/13 1000 AC 08/15 PO 0953 Furosemide 40 MG 7:30 AM, & 4:30 PM 08/13 1630 AC 08/15 PO 0850 Hydralazine HCl 25 MG BID 08/12 2200 AC 08/15 PO 0952 Insulin Aspart 0 TIDAC 08/13 0800 AC 08/15 SC 1207 Insulin Detemir 6 UNITS QPM 08/12 2200 AC 08/14 SC 2141 Ipratropium [place] 2.5 ML EVERY 4 HRS/AWAKE 08/13 0800 AC 08/15 INH 1314 Isosorbide 30 MG DAILY 08/13 1000 AC 08/15 Mononitrate PO 0953 Melatonin 3 MG AT BEDTIME 08/13 2200 AC 08/14 PO 2141 Methylprednisolone 40 MG Q8 08/12 1425 AC 08/15 IV 1451 Mirtazapine 15 MG QPM 08/12 2200 AC 08/14 PO 2141 Multivitamins 1 TAB DAILY 08/13 1000 AC 08/15 Therapeutic PO 0953 Senna/Docusate Sodium 1 TAB BID PRN 08/12 1430 AC PO Trazodone HCl 25 MG AT BEDTIME 08/12 2200 AC 08/14 PO 2141 Results Last 48 Hrs of Labs/Mics: Laboratory Tests 08/15/16 0550: Anion Gap 12, Estimated GFR 35 L, BUN/Creatinine Ratio 47.9 H, CBC w Diff NO MAN DIFF REQ, RBC 4.79, MCV 77.0 L, MCH 24.3 L, RDW 25.4 H, MPV 9.1, Gran % 97.5 H, Lymphocytes % 1.5 L, Monocytes % 0.9 L, Eosinophils % 0.1, Basophils % 0 L, Absolute Granulocytes 10.1 H, Absolute Lymphocytes 0.2 L, Absolute Monocytes 0.1 L, Absolute Eosinophils 0, Absolute Basophils 0, PUBS MCHC 31.6 L 08/14/16 0630: Anion Gap 13, Estimated GFR 33 L, BUN/Creatinine Ratio 42.0 H, Magnesium 2.3, CBC w Diff MAN DIFF ORDERED, RBC 4.94, MCV 77.8 L, MCH 24.2 L, RDW 25.5 H, MPV 9.2, Gran % 94.5 H, Lymphocytes % 2.9 L, Monocytes % 2.5, Eosinophils % 0.1, Basophils % 0 L, Absolute Granulocytes 10.2 H, Absolute Lymphocytes 0.3 L, Absolute Monocytes 0.3, Absolute Eosinophils 0, Absolute Basophils 0, Platelet Estimate VERIFIED BY SMEAR, Polychromasia 1+, Hypochromic-Microcytic 2+ , Poikilocytosis 1+, Basophilic Stippling SLIGHT, Anisocytosis 2+, Microcytic Cells 1+, Target Cells , PUBS MCHC 31.1 L Recent Imaging Studies: Telemetry tracings show ventricular pacing with short NSVT bursts Assessment/Plan Assessment/Plan 1. Advanced ischemic cardiomyopathy with biventricular failure 2. Coronary artery disease with prior CABG 3. Acute on chronic systolic congestive heart failure, recurrent 4. Biventricular AICD in situ 5. Interstitial lung disease/COPD 6. Persistent atrial fibrillation on chronic anticoagulation 7. History of TIA/CVA 8. Acute on chronic renal insufficiency 9. Status post endovascular AAA repair 10. Hypertension/hyperlipidemia 11. Diabetes mellitus 12. Hyperkalemia Still volume overloaded today. Would give a dose of 60 mg IV Lasix x 1 today and increase the baseline oral Lasix to 60 mg PO BID. Monitor the BUN which may be increased from the IV steroids. He is not on Aldactone or FAISAL inhibitor due to renal insufficiency/hyperkalemia. Continue Imdur/Hydralazine/Coreg. Continue to discuss goals of care. Long-term prognosis is guarded given his advanced multiple medical issues including end stage CHF with BiV failure. Aldo Gorman MD [facility] Continue telemetry? Yes
[2016-08-15 16:59] VITALS: BP 128/68
--- NOTE | 2016-08-16 07:15 | PN- Att Addend ---
Attending Addendum Attending Brief Note Intake & Output 08/16 0808/16 0000 08/15 1600 Intake Total 495 480 Output Total Balance 495 480 Intake, IV 15 Intake, Oral 480 480 Number 0 Bowel Movements Current Medications Sig/Bang Start time Last Medication Dose Route Stop Time Status Admin Albuterol Sulfate 3 ML EVERY 4 HRS/AWAKE 08/13 0800 AC 08/16 INH 0557 Apixaban 2.5 MG BID 08/12 2200 AC 08/15 PO 2126 Aspirin Buffered 81 MG DAILY 08/13 1000 AC 08/15 PO 0953 Budesonide 0.25 MG BID 08/12 1430 AC 08/15 INH 1855 Carvedilol 3.125 MG BID 08/12 2200 AC 08/15 PO 2126 Digoxin 0.125 MG Q48 08/14 1000 AC 08/14 PO 1118 Folic Acid 1 MG DAILY 08/13 1000 AC 08/15 PO 0953 Furosemide 60 MG 7:30 AM, & 4:30 PM 08/16 0730 AC 08/16 PO 0621 Furosemide 60 MG 7:30 AM, & 4:30 PM 08/15 1630 DC PO Furosemide 60 MG ONCE ONE 08/15 1530 DC 08/15 IV 08/15 1531 1805 Furosemide 40 MG 7:30 AM, & 4:30 PM 08/13 1630 DC 08/15 PO 0850 Hydralazine HCl 25 MG BID 08/12 2200 AC 08/15 PO 2126 Insulin Aspart 0 TIDAC 08/13 0800 AC 08/15 SC 1805 Insulin Detemir 6 UNITS QPM 08/12 2200 AC 08/15 SC 2125 Ipratropium [place] 2.5 ML EVERY 4 HRS/AWAKE 08/13 08 AC 08/16 INH 0558 Isosorbide 30 MG DAILY 08/13 1000 AC 08/15 Mononitrate PO 0953 Melatonin 3 MG AT BEDTIME 08/13 2200 AC 08/15 PO 2130 Methylprednisolone 40 MG Q8 08/12 1425 AC 08/16 IV 0621 Mirtazapine 15 MG QPM 08/12 2200 AC 08/15 PO 2126 Multivitamins 1 TAB DAILY 08/13 1000 AC 08/15 Therapeutic PO 0953 Senna/Docusate Sodium 1 TAB BID PRN 08/12 1430 AC PO Trazodone HCl 25 MG AT BEDTIME 08/12 2200 AC 08/15 PO 2126 Vital Signs Date Time Temp Pulse Resp B/P Pulse O2 O2 Flow FiO2 Ox Delivery Rate 08/16 0614 95 Nasal 3.0L Cannula 08/16 0000 94 Nasal 3.0L Cannula 08/15 2330 97.7 94 20 94 08/15 2126 65 126/58 08/15 2126 65 126/58 08/15 1855 96 Nasal 3.0L Cannula 08/15 1659 97.6 78 18 128/68 95 Nasal Cannula 08/15 1600 Nasal 3.0L Cannula 08/15 1016 98 Nasal 3.0L Cannula 08/15 0953 78 110/60 08/15 0953 78 110/60 08/15 0952 78 110/60 08/15 0823 97.9 78 20 110/60 96 Nasal 3.0L Cannula 08/15 0800 96 Nasal 3.0L Cannula Intake & Output 08/16 0800 08/16 0000 08/15 1600 Intake Total 495 480 Output Total Balance 495 480 Intake, IV 15 Intake, Oral 480 480 Number 0 Bowel Movements Attending note. Short of breath feels lousy 3 L 94% respirations are 20 blood pressure is 130/70 S1-S2 is normal Lungs shows diminished breath sound both bases left more than the right with bibasilar crackles. Bipedal edema 2+ with edema or on his upper extremities as well. Assessment Chronic systolic heart failure Increase his Lasix to IV 80 mg twice a day for 2 days Morning repeat chest x-ray today BMP daily Need. Input from cardiology regarding long-term prognosis and discussed with family about comfort care.
--- NOTE | 2016-08-16 07:32 | PN- Housestaff ---
Subjective Follow-up For: 1. Acute exacerbation of HFREF 2. Possible COPD exacerbation 3. Atrial fibrillation 4. Chronic kidney disease Complaints: pain scale (0-10) Tele-Events Since Last Visit: Atrial fibrillation Single pacing Rate 70-78 Subjective: Patient was seen and examined this morning. He is alert awake and oriented to time place and person. No acute events noticed overnight.. He looks very ill Patient still complains of shortness of breath. He denied any chest pain, racing of heart. Denied any fever, chills, nausea, vomiting, abdominal pain, change in bladder or bowel habits. Reports lower extremity edema. Vitals were stable. He is afebrile, rate 94, respiratory rate 20, blood pressure 122/60 saturating at 94% on 3 L oxygen Review of Systems Constitutional: Denies: see HPI. Objective Last 24 Hrs of Vital Signs/I&O Vital Signs Date Time Temp Pulse Resp B/P Pulse O2 O2 Flow FiO2 Ox Delivery Rate 08/16 0614 95 Nasal 3.0L Cannula 08/16 0000 94 Nasal 3.0L Cannula 08/15 2330 97.7 94 20 94 08/15 2126 65 126/58 08/15 2126 65 126/58 08/15 1855 96 Nasal 3.0L Cannula 08/15 1659 97.6 78 18 128/68 95 Nasal Cannula 08/15 1600 Nasal 3.0L Cannula 08/15 1016 98 Nasal 3.0L Cannula 08/15 0953 78 110/60 08/15 0953 78 110/60 08/15 0952 78 110/60 08/15 0823 97.9 78 20 110/60 96 Nasal 3.0L Cannula Intake & Output 08/16 1600 08/16 0800 08/16 0000 Intake Total 480 495 Output Total Balance 480 495 Intake, IV 15 Intake, Oral 480 480 Physical Exam General Appearance: Alert, Oriented X3, Cooperative, No Acute Distress Skin: No Rashes, No Breakdown HEENT: Atraumatic, Mucous Membr. moist/pink Neck: Supple, No JVD Lymphatic: Cervical nl Cardiovascular: Normal S1, Normal S2, No Murmurs Lungs: dec air entry and crackles Abdomen: Normal Bowel Sounds, Soft, No Tenderness Extremities: No Clubbing, No Cyanosis, +2 pitting edema Vascular: Normal Pulses Current Medications: Current Medications Sig/Bang Start time Last Medication Dose Route Stop Time Status Admin Albuterol Sulfate 3 ML EVERY 4 HRS/AWAKE 08/13 0800 AC 08/16 INH 0557 Apixaban 2.5 MG BID 08/12 2200 AC 08/15 PO 2126 Aspirin Buffered 81 MG DAILY 08/13 1000 AC 08/15 PO 0953 Budesonide 0.25 MG BID 08/12 1430 AC 08/15 INH 1855 Carvedilol 3.125 MG BID 08/12 2200 AC 08/15 PO 2126 Digoxin 0.125 MG Q48 08/14 1000 AC 08/14 PO 1118 Folic Acid 1 MG DAILY 08/13 1000 AC 08/15 PO 0953 Furosemide 80 MG 7:30 AM, & 4:30 PM 08/16 1630 AC IV 08/17 2300 Furosemide 60 MG 7:30 AM, & 4:30 PM 08/16 0730 DC 08/16 PO 0621 Furosemide 60 MG 7:30 AM, & 4:30 PM 08/15 1630 DC PO Furosemide 60 MG ONCE ONE 08/15 1530 DC 08/15 IV 08/15 1531 1805 Furosemide 40 MG 7:30 AM, & 4:30 PM 08/13 1630 DC 08/15 PO 0850 Hydralazine HCl 25 MG BID 08/12 2200 AC 08/15 PO 2126 Insulin Aspart 0 TIDAC 08/13 0800 AC 08/15 SC 1805 Insulin Detemir 6 UNITS QPM 08/12 2200 AC 08/15 SC 2125 Ipratropium [place] 2.5 ML EVERY 4 HRS/AWAKE 08/13 0800 AC 08/16 INH 0558 Isosorbide 30 MG DAILY 08/13 1000 AC 08/15 Mononitrate PO 0953 Melatonin 3 MG AT BEDTIME 08/13 2200 AC 08/15 PO 2130 Methylprednisolone 40 MG Q8 08/12 1425 AC 08/16 IV 0621 Mirtazapine 15 MG QPM 08/12 2200 AC 08/15 PO 2126 Multivitamins 1 TAB DAILY 08/13 1000 AC 08/15 Therapeutic PO 0953 Senna/Docusate Sodium 1 TAB BID PRN 08/12 1430 AC PO Trazodone HCl 25 MG AT BEDTIME 08/12 2200 AC 08/15 PO 2126 Assessment/Plan Assessment: This is a 75-year-old male with past medical history significant for HFREF secondary to ischemic cardiomyopathy status post biventricular AICD, atrial fibrillation on eliqus and digoxin, coronary artery disease status post CABG and triple bypass, COPD on 2 L oxygen, systolic congestive heart failure on Lasix, type 2 diabetes mellitus, insomnia, anxiety, depression, GERD, peripheral vascular disease, endovascular abdominal aortic repair, right MCA stroke was brought to [facility] emergency department from [facility] for worsening shortness of breath, bilateral lower extremity edema, decreased oxygen saturations for one day prior to presentation. Of note patient was discharged on 07/30/2016 after treated for acute decompensated heart failure. He was discharged to [facility] on Lasix 40 mg twice a day. Last echocardiogram done in July 2016 showed ejection fraction 15-20% with systolic failure, moderate pulmonary hypertension. Vitals on admission-afebrile, heart rate 80, respiratory rate 20, blood pressure 165/70, saturating at 94% on 4 L. -Pertinent labs-CBC normal, sodium 139, potassium 5.4, BUN 62, creatinine 1.7. Liver function tests-bilirubin 1.9, ALT 71, AST 48, alkaline phosphatase 94 Troponins negative on admission ProBNP 14099. ABG 7.33, 25, 49 EKG atrial flutter fibrillation rate 88. No ST-T wave changes. Chest x-ray showed cardiomegaly and congestive heart failure interstitial edema and bilateral pleural effusions left greater than right Patient received IV Lasix 40 mg once in the emergency room. Problem list 1. Acute exacerbation of HFREF 2. Possible COPD exacerbation 3. Atrial fibrillation 4. Chronic kidney disease 5. Coronary artery disease status post CABG 6. Type 2 diabetes mellitus 7. Insomnia 8. Anxiety 9. GERD 10. Depression Acute exacerbation of systolic congestive heart failure(hfref) Patient was brought to the emergency department with worsening shortness of breath and decreased oxygen saturations on 2 L oxygen. Increased weight gain and bilateral lower extremity edema was found. He was found lethargic and wheezing. ProBNP elevated on admission. Chest x-ray showed cardiomegaly and congestive heart failure, bilateral pleural effusions left greater than right. Of note patient was discharged on 07/30/2016 after being treated for acute systolic congestive heart failure. He was discharged on carvedilol, hydralazine ,IMDUR, Lasix 40 twice a day, digoxin. * Admitted to telemetry floor for treatment of acute CHF exacerbation * Monitor vitals every shift * Maintain oxygen saturation above 92% * Provide supplemental oxygen-saturating at 92% on 3 L now * Strict ins and outs * Daily weights * IV lasix 80 mg bid for 2days for now- aggressive diuresis. * Monitor BEP. * Cardiology consulted * Echo was done recently. * Continue Coreg 3.125 twice a day * Continue isosorbide mononitrate 30 mg daily * Continue home dose of hydralazine 25 mg twice a day. * First set of EKG and troponins negative * Serial EKG and troponins negative Possible COPD exacerbation Presented with worsening shortness of breath and wheezing. He was lethargic and wheezing. ABGs in the emergency room showed pH 7.33, bicarbonate 25, carbon dioxide 49, respiratory acidosis with compensation. Of note patient is on 2 L oxygen at nursing care facility. He is requiring 3L now. * Continue providing oxygen supplementation * Maintain oxygen saturation above 90% * Monitor vitals closely * Total respiratory care * Methylprednisolone 40 mg every 8hrs * Budesonide * albuterol/ipratropium * Blood cultures * Sputum cultures Hyperkalemia Potassium 5.4 on admission No EKG changes We'll monitor closely BEP in the morning- k 5.4 Chronic kidney disease Baseline creatinine 1.5-1.8. Creatinine on admission 1.7, today cr is 1.9 Atrial fibrillation Continue home dose of eliqus 2.5 mg twice a day Continue digoxin 0.125 mg every 48 hours Coronary artery disease Status post CABG and triple bypass Continue baby aspirin Hypertension Continue home dose of Coreg hydralazine and isosorbide mono nitrate both for hypertension and CHF Type 2 diabetes mellitus Patient is on NovoLog sliding scale and Levemir 6 units every night for type 2 diabetes mellitus * Accu-Cheks * Continue Levemir * Continue NovoLog sliding scale Insomnia Continue mirtazapine every night anxiety Continue trazodone 25 mg GERD Continue pantoprazole 40 daily Patient is full code Mild pain pathway Tylenol Heart healthy diet DVT prophylaxis-patient is on eliqus Problem List: 1. BOBBY (acute kidney injury) 2. COPD exacerbation 3. Axjph-ny-hazndte kidney injury 4. Ischemic cardiomyopathy 5. HFrEF (heart failure with reduced ejection fraction) Pain Ratin Pain Location: none Pain Goal: Remain pain free Pain Plan: tylinol Tomorrow's Labs & Rationales: bep in the setting of ARF AND HYPERKALEMIA
[2016-08-16 08:00] VITALS: BP 150/70
--- NOTE | 2016-08-16 09:59 | RADIOLOGY REPORT ---
EXAMINATION: XR PORTABLE CHEST CLINICAL INFORMATION: Shortness of breath. Cardiomegaly. COMPARISON: CXR from 08/12/2016 TECHNIQUE: Portable view of the chest was obtained. FINDINGS: Findings the chest remains similar to those observed on the prior exam of 08/12/2016. Again noted is cardiomegaly, pulmonary vessel engorgement and interstitial opacities, suggestive of interstitial edema. There are persistent hazy and airspace opacities in lower lung zones. Small pleural effusions are unchanged (left larger than right). No pneumothorax. IMPRESSION: Congestive heart failure. No new findings in the chest compared to 08/12/2016.
--- NOTE | 2016-08-16 14:12 | NUR ---
WOUND CARE: REQUESTED BY NURSING STAFF TO EVALUATE PT FOR SKIN ALTERATION PRESENT ON ADMISSION - HX REVIEWED - SACRUM INTACT DESPITE 3 CM AREA OF BLACHABLE ERYTHEMA - NO BREAK IN SKIN INTEGRITY AT THIS PRESENT TIME RECOMMENDATION: PREVENTATIVE SKIN CARE PER FACILTY POLICY AND ENCOUARGE Q 2 HOUR REPOSITIONING
[2016-08-16 15:30] VITALS: BP 118/68
[2016-08-16 21:22] VITALS: BP 142/66
--- NOTE | 2016-08-17 06:43 | NUR ---
NURSING NOTES: AT 0630, PATIENT HAD 10 TO 12 COMPLEXES OF NSVT. PATIENT IS ALERT AND ORIENT AND NOT COMPLAIN CHEST PAIN. DR. MOREL NOTIFIED. NO ORDERS MADE. WILL CONTINUE TO MONITOR.
[2016-08-17 07:00] VITALS: BP 144/76
--- NOTE | 2016-08-17 07:15 | PN- Housestaff ---
Subjective Follow-up For: 1. Acute exacerbation of HFREF 2. Possible COPD exacerbation 3. Atrial fibrillation 4. Chronic kidney disease Complaints: pain scale (0-10) Tele-Events Since Last Visit: Atrial fibrillation Single pacing Rate 70-80 Subjective: Patient was seen and examined this morning. He is alert awake and oriented to time place and person. No acute events noticed overnight.. He looks very ill Patient still complains of shortness of breath. He denied any chest pain, racing of heart. Denied any fever, chills, nausea, vomiting, abdominal pain, change in bladder or bowel habits. Reports lower extremity edema. WORSENING SCROTAL EDEMA. Vitals were stable. He is afebrile, rate 72, respiratory rate 20, blood pressure 122/60 saturating at 94% on 2 L oxygen low urine output even after getting iv lasix 80mg twice a day. 300ml urine output Review of Systems Constitutional: Denies: see HPI. Objective Last 24 Hrs of Vital Signs/I&O Vital Signs Date Time Temp Pulse Resp B/P Pulse O2 O2 Flow FiO2 Ox Delivery Rate 08/17 0757 98 Nasal 2.0L Cannula 08/17 0700 98.2 89 20 144/76 98 08/17 0127 98 Nasal 2.0L Cannula 08/17 0000 98 Nasal 3.0L Cannula 08/17 0000 97.4 72 22 97 08/16 2122 70 142/66 08/16 2116 70 142/66 08/16 2115 70 142/66 08/16 1810 98 Nasal 3.0L Cannula 08/16 1600 98 Nasal 3.0L Cannula 08/16 1530 98.3 72 20 118/68 99 Nasal 3.0L Cannula Intake & Output 08/17 1600 08/17 0800 08/17 0000 Intake Total 300 520 Output Total 200 Balance 100 520 Intake, Oral 300 520 Number 0 Bowel Movements Output, Urine 200 Physical Exam General Appearance: Alert, Oriented X3, Cooperative, No Acute Distress Skin: No Rashes, No Significant Lesion HEENT: Atraumatic, Mucous Membr. moist/pink Neck: Supple, No JVD Lymphatic: Cervical nl Cardiovascular: Normal S1, Normal S2, irregular rhythm Lungs: dec air entry and crackles Abdomen: Normal Bowel Sounds, Soft, No Tenderness Extremities: No Clubbing, No Cyanosis, No Edema, b/l ll pitting edema and scrotal edema Vascular: Normal Pulses Current Medications: Current Medications Sig/Bang Start time Last Medication Dose Route Stop Time Status Admin Albuterol Sulfate 3 ML EVERY 4 HRS/AWAKE 08/13 0800 AC 08/17 INH 0756 Apixaban 2.5 MG BID 08/12 2200 AC 08/16 PO 211 Aspirin Buffered 81 MG DAILY 08/13 1000 AC 08/16 PO 0905 Budesonide 0.25 MG BID 08/12 1430 AC 08/17 INH 0756 Carvedilol 3.125 MG BID 08/12 2200 AC 08/16 PO 211 Digoxin 0.125 MG Q48 08/14 1000 AC 08/16 PO 0905 Docusate Sodium 100 MG DAILY NEEDED PRN 08/17 0800 AC PO Folic Acid 1 MG DAILY 08/13 1000 AC 08/16 PO 0905 Furosemide 80 MG 7:30 AM, & 4:30 PM 08/16 1630 AC 08/17 IV 08/17 2300 0846 Hydralazine HCl 25 MG BID 08/12 2200 AC 08/16 PO 211 Insulin Aspart 0 TIDAC 08/13 0800 AC 08/17 SC 0846 Insulin Detemir 6 UNITS QPM 08/12 220 AC 08/16 SC 211 Ipratropium [place] 2.5 ML EVERY 4 HRS/AWAKE 08/13 0800 AC 08/17 INH 0756 Isosorbide 30 MG DAILY 08/13 1000 AC 08/16 Mononitrate PO 09 Melatonin 3 MG AT BEDTIME 08/13 220 AC 08/16 PO 211 Methylprednisolone 40 MG Q12 08/16 2200 AC 08/16 IV 211 Methylprednisolone 40 MG Q8 08/12 1425 DC 08/16 IV 0621 Mirtazapine 15 MG QPM 08/12 2200 AC 08/16 PO 211 Multivitamins 1 TAB DAILY 08/13 1000 AC 08/16 Therapeutic PO 0905 Patient Medication 1 ED .STK-MED ONE 08/16 1302 DC Teaching ED 08/16 1303 Senna/Docusate Sodium 1 TAB BID PRN 08/12 1430 AC 08/16 PO 211 Trazodone HCl 25 MG AT BEDTIME 08/12 220 AC 08/16 PO 211 Last 24 Hrs of Lab/Regis Results Last 24 Hrs of Labs/Mics: Laboratory Tests 08/17/16 0610: Anion Gap 11, Estimated GFR 35 L, BUN/Creatinine Ratio 58.9 H, Phosphorus 6.2 H, Magnesium 2.5 H Assessment/Plan Assessment: This is a 75-year-old male with past medical history significant for HFREF secondary to ischemic cardiomyopathy status post biventricular AICD, atrial fibrillation on eliqus and digoxin, coronary artery disease status post CABG and triple bypass, COPD on 2 L oxygen, systolic congestive heart failure on Lasix, type 2 diabetes mellitus, insomnia, anxiety, depression, GERD, peripheral vascular disease, endovascular abdominal aortic repair, right MCA stroke was brought to [facility] emergency department from [facility] for worsening shortness of breath, bilateral lower extremity edema, decreased oxygen saturations for one day prior to presentation. Of note patient was discharged on 07/30/2016 after treated for acute decompensated heart failure. He was discharged to [facility] on Lasix 40 mg twice a day. Last echocardiogram done in July 2016 showed ejection fraction 15-20% with systolic failure, moderate pulmonary hypertension. Vitals on admission-afebrile, heart rate 80, respiratory rate 20, blood pressure 165/70, saturating at 94% on 4 L. -Pertinent labs-CBC normal, sodium 139, potassium 5.4, BUN 62, creatinine 1.7. Liver function tests-bilirubin 1.9, ALT 71, AST 48, alkaline phosphatase 94 Troponins negative on admission ProBNP 95152. ABG 7.33, 25, 49 EKG atrial flutter fibrillation rate 88. No ST-T wave changes. Chest x-ray showed cardiomegaly and congestive heart failure interstitial edema and bilateral pleural effusions left greater than right Patient received IV Lasix 40 mg once in the emergency room. Problem list 1. Acute exacerbation of HFREF 2. Possible COPD exacerbation 3. Atrial fibrillation 4. Chronic kidney disease 5. Coronary artery disease status post CABG 6. Type 2 diabetes mellitus 7. Insomnia 8. Anxiety 9. GERD 10. Depression Acute exacerbation of systolic congestive heart failure(hfref) Patient was brought to the emergency department with worsening shortness of breath and decreased oxygen saturations on 2 L oxygen. Increased weight gain and bilateral lower extremity edema was found. He was found lethargic and wheezing. ProBNP elevated on admission. Chest x-ray showed cardiomegaly and congestive heart failure, bilateral pleural effusions left greater than right. Of note patient was discharged on 07/30/2016 after being treated for acute systolic congestive heart failure. He was discharged on carvedilol, hydralazine ,IMDUR, Lasix 40 twice a day, digoxin. * Admitted to telemetry floor for treatment of acute CHF exacerbation * Monitor vitals every shift * Maintain oxygen saturation above 92% * Provide supplemental oxygen-saturating at 92% on 2L now * Strict ins and outs * Daily weights * IV lasix 80 mg bid for 2days for now- aggressive diuresis. * Monitoring BEP. * Cardiology consulted * Echo was done recently. * Continue Coreg 3.125 twice a day * Continue isosorbide mononitrate 30 mg daily * Continue home dose of hydralazine 25 mg twice a day. * First set of EKG and troponins negative * Serial EKG and troponins negative Possible COPD exacerbation Presented with worsening shortness of breath and wheezing. He was lethargic and wheezing. ABGs in the emergency room showed pH 7.33, bicarbonate 25, carbon dioxide 49, respiratory acidosis with compensation. Of note patient is on 2 L oxygen at nursing care facility. He is requiring 3L now. * Continue providing oxygen supplementation * Maintain oxygen saturation above 90% * Monitor vitals closely * Total respiratory care * Methylprednisolone 40 mg every 12hrs, will taper down from tomorrow. * Budesonide * albuterol/ipratropium * Blood cultures * Sputum cultures Acute on chronic hypoxic respiratory failure Presented with worsening shortness of breath and wheezing. He was lethargic and wheezing. ABGs in the emergency room showed pH 7.33, bicarbonate 25, carbon dioxide 49, respiratory acidosis with compensation. Of note patient is on 2 L oxygen at nursing care facility. He is requiring 3-4L now. * Admitted for acute on chronic hypoxic respiratory failure * Continue supplemental oxygen * Maintain oxygen saturations above 92% * monitor vitals every shift Hyperkalemia Potassium 5.4 on admission No EKG changes We'll monitor closely BEP in the morning- k 5.6 Chronic kidney disease Baseline creatinine 1.5-1.8. Creatinine on admission 1.7, today cr is 1.9 Atrial fibrillation Continue home dose of eliqus 2.5 mg twice a day Continue digoxin 0.125 mg every 48 hours Coronary artery disease Status post CABG and triple bypass Continue baby aspirin Hypertension Continue home dose of Coreg hydralazine and isosorbide mono nitrate both for hypertension and CHF Type 2 diabetes mellitus Patient is on NovoLog sliding scale and Levemir 6 units every night for type 2 diabetes mellitus * Accu-Cheks * Continue Levemir * Continue NovoLog sliding scale Insomnia Continue mirtazapine every night anxiety Continue trazodone 25 mg GERD Continue pantoprazole 40 daily Patient is full code Mild pain pathway Tylenol Heart healthy diet DVT prophylaxis-patient is on eliqus Problem List: 1. COPD exacerbation 2. BOBBY (acute kidney injury) 3. [id number]-[id number] kidney injury 4. HFrEF (heart failure with reduced ejection fraction) Pain Ratin Pain Location: none Pain Goal: Remain pain free Pain Plan: tylinol Tomorrow's Labs & Rationales: BEP in the setting of worsening kidney function tests
--- NOTE | 2016-08-17 07:17 | PN- Att Addend ---
Attending Addendum Attending Brief Note Intake & Output 08/17 0808/17 0000 08/16 1600 Intake Total 300 520 480 Output Total 200 Balance 100 520 480 Intake, Oral 300 520 480 Number 0 Bowel Movements Output, Urine 200 Current Medications Sig/Bang Start time Last Medication Dose Route Stop Time Status Admin Albuterol Sulfate 3 ML EVERY 4 HRS/AWAKE 08/13 0800 AC 08/17 INH 0126 Apixaban 2.5 MG BID 08/12 220 AC 08/16 PO 211 Aspirin Buffered 81 MG DAILY 08/13 1000 AC 08/16 PO 0905 Budesonide 0.25 MG BID 08/12 1430 AC 08/16 INH 1810 Carvedilol 3.125 MG BID 08/12 220 AC 08/16 PO 211 Digoxin 0.125 MG Q48 08/14 1000 AC 08/16 PO 0905 Folic Acid 1 MG DAILY 08/13 1000 AC 08/16 PO 0905 Furosemide 80 MG 7:30 AM, & 4:30 PM 08/16 1630 AC 08/16 IV 08/17 230 161 Furosemide 60 MG 7:30 AM, & 4:30 PM 08/16 0730 DC 08/16 PO 0621 Hydralazine HCl 25 MG BID 08/12 220 AC 08/16 PO 2115 Insulin Aspart 0 TIDAC 08/13 08 AC 08/16 SC 1755 Insulin Detemir 6 UNITS QPM 08/12 2199 AC 08/16 SC 211 Ipratropium [place] 2.5 ML EVERY 4 HRS/AWAKE 08/13 0800 AC 08/17 INH 0125 Isosorbide 30 MG DAILY 08/13 1000 AC 08/16 Mononitrate PO 09 Melatonin 3 MG AT BEDTIME 08/13 2199 AC 08/16 PO 211 Methylprednisolone 40 MG Q12 08/16 2199 AC 08/16 IV 211 Methylprednisolone 40 MG Q8 08/12 1425 DC 08/16 IV 0621 Mirtazapine 15 MG QPM 08/12 220 AC 08/16 PO 211 Multivitamins 1 TAB DAILY 08/13 1000 AC 08/16 Therapeutic PO 0905 Patient Medication 1 ED .STK-MED ONE 08/16 1302 DC Teaching ED 08/16 1303 Senna/Docusate Sodium 1 TAB BID PRN 08/12 1430 AC 08/16 PO 211 Trazodone HCl 25 MG AT BEDTIME 08/12 2200 AC 08/16 PO 2115 Laboratory Tests 08/17 08/16 0610 0720 Chemistry Sodium (137 - 145 mmol/L) Pending 136 L Potassium (3.5 - 5.1 mmol/L) Pending 5.8 H Chloride (98 - 107 mmol/L) Pending 96 L Carbon Dioxide (22 - 30 mmol/L) Pending 28 Anion Gap (5 - 16) Pending 12 BUN (9 - 20 mg/dL) Pending 113 *H Creatinine (0.7 - 1.2 mg/dL) Pending 1.8 H Estimated GFR (>60 ml/min) 37 L BUN/Creatinine Ratio (7 - 25 %) Pending 62.8 H Phosphorus Pending Magnesium Pending Vital Signs Date Time Temp Pulse Resp B/P Pulse O2 O2 Flow FiO2 Ox Delivery Rate 08/17 0127 98 Nasal 2.0L Cannula 08/17 0000 98 Nasal 3.0L Cannula 08/17 0000 97.4 72 22 97 08/16 2121 70 142/66 08/16 2115 70 142/66 08/165 70 142/66 08/16 1810 98 Nasal 3.0L Cannula 08/16 1600 98 Nasal 3.0L Cannula 08/16 1530 98.3 72 20 118/68 99 Nasal 3.0L Cannula 08/16 0919 98 Nasal 3.5L Cannula 08/16 0905 90 150/70 08/16 0905 90 150/70 08/16 0904 90 150/70 08/16 0904 90 150/70 08/16 0800 97 Nasal 3.0L Cannula 08/16 0800 97.8 87 20 150/70 98 Nasal 3.0L Cannula Intake & Output 08/17 0800 08/17 0000 08/16 1600 Intake Total 300 520 480 Output Total 200 Balance 100 520 480 Intake, Oral 300 520 480 Number 0 Bowel Movements Output, Urine 200 Attending note. Patient gradually declining condition very weak he does not have the energy to have a bowel movement constipated. Had a run of V. tach this morning 12 beats of V. tach. On examination looks ill JVD is not raised S1-S2 is normal Lungs shows bibasilar crackles. Abdomen is soft nontender bowel sounds are present Assessment End-stage artery disease cardiomyopathy with the chronic systolic heart failure On Lasix 80 mg twice a day with very minimal improvement. Myles is up to 113 creatinine is 1.8 chest x-ray shows to his and heart failure. Discussed with the son about his condition his current deciding about comfort care. Will request cardiology to discuss today about comfort care and [place] [facility] [place].
--- NOTE | 2016-08-17 15:40 | PN- Cardiology ---
Subjective Subjective: Still weak. No significant change in his breathing. Still with lower extremity edema. Objective Vital Signs and I&Os Vital Signs Date Time Temp Pulse Resp B/P Pulse O2 O2 Flow FiO2 Ox Delivery Rate 08/17 1450 97.4 76 18 132/62 08/17 0955 89 144/76 08/17 0955 89 144/76 08/17 0954 89 144/76 08/17 0757 98 Nasal 2.0L Cannula 08/17 0700 98.2 89 20 144/76 98 08/17 0127 98 Nasal 2.0L Cannula 08/17 0000 98 Nasal 3.0L Cannula 08/17 0000 97.4 72 22 97 08/16 2122 70 142/66 08/16 211 70 142/66 08/16 2115 70 14266 08/16 1810 98 Nasal 3.0L Cannula 08/16 1600 98 Nasal 3.0L Cannula Intake & Output 08/17 1600 08/17 0800 08/17 0000 08/16 1600 08/16 0800 08/16 0000 Intake Total 300 520 480 480 495 Output Total 200 Balance 100 520 480 480 495 Intake, IV 15 Intake, Oral 300 520 480 480 480 Number 0 Bowel Movements Output, Urine 200 Physical Exam: General: no apparent distress. Eyes: No obvious scleral icterus. HEENT: No abnormal jugular venous pulsations. Cardiovascular: Normal intensity S1/S2. AICD noted. Respiratory: decreased air entry at the bases Abdomen: Soft, nontender with no guarding or rebound tenderness. Musculoskeletal: No cyanosis noted, 1+ lower extremity edema noted Skin: Warm Lymph: No gross lymphadenopathy Current Medications: Current Medications Sig/Bang Start time Last Medication Dose Route Stop Time Status Admin Acetaminophen 650 MG Q4P PRN 08/17 1400 AC PO Albuterol Sulfate 3 ML EVERY 4 HRS/AWAKE 08/13 0800 AC 08/17 INH 1129 Apixaban 2.5 MG BID 08/12 2200 AC 08/17 PO 0954 Aspirin Buffered 81 MG DAILY 08/13 1000 AC 08/17 PO 0954 Budesonide 0.25 MG BID 08/12 1430 AC 08/17 INH 0756 Carvedilol 3.125 MG BID 08/12 2200 AC 08/17 PO 0955 Digoxin 0.125 MG Q48 08/14 1000 AC 08/16 PO 0905 Dobutamine HCl 250 MG Q24H 08/17 1200 AC 08/17 Dextrose/Water 250 ML IV 1450 Docusate Sodium 100 MG DAILY NEEDED PRN 08/17 0800 AC 08/17 PO 0954 Folic Acid 1 MG DAILY 08/13 1000 AC 08/17 PO 0954 Furosemide 80 MG 7:30 AM, & 4:30 PM 08/16 1630 AC 08/17 IV 08/17 2300 0846 Hydralazine HCl 25 MG BID 08/12 2200 AC 08/17 PO 0954 Insulin Aspart 0 TIDAC 08/13 0800 AC 08/17 SC 1208 Insulin Detemir 6 UNITS QPM 08/12 2200 AC 08/16 SC 2117 Ipratropium [place] 2.5 ML EVERY 4 HRS/AWAKE 08/13 0800 AC 08/17 INH 1129 Isosorbide 30 MG DAILY 08/13 1000 AC 08/17 Mononitrate PO 0955 Melatonin 3 MG AT BEDTIME 08/13 2200 AC 08/16 PO 2116 Methylprednisolone 40 MG Q12 08/16 2200 AC 08/17 IV 1337 Mirtazapine 15 MG QPM 08/12 2200 AC 08/16 PO 2116 Multivitamins 1 TAB DAILY 08/13 1000 AC 08/17 Therapeutic PO 0954 Senna/Docusate Sodium 1 TAB BID PRN 08/12 1430 AC 08/17 PO 0954 Trazodone HCl 25 MG AT BEDTIME 08/12 220 AC 08/16 PO 2115 Results Last 48 Hrs of Labs/Mics: Laboratory Tests 08/17/16 0610: Anion Gap 11, Estimated GFR 35 L, BUN/Creatinine Ratio 58.9 H, Phosphorus 6.2 H, Magnesium 2.5 H 08/16/16 0720: Anion Gap 12, Estimated GFR 37 L, BUN/Creatinine Ratio 62.8 H Recent Imaging Studies: Telemetry tracings were personally reviewed and showed ventricular paced rhythm and a run of nonsustained ventricular tachycardia CXR from yesterday IMPRESSION: Congestive heart failure. No new findings in the chest compared to 08/12/2016. Assessment/Plan Assessment/Plan 1. Advanced ischemic cardiomyopathy with biventricular failure 2. Coronary artery disease with prior CABG 3. Acute on chronic systolic congestive heart failure, recurrent 4. Biventricular AICD in situ 5. Interstitial lung disease/COPD 6. Persistent atrial fibrillation on chronic anticoagulation 7. History of TIA/CVA 8. Acute on chronic renal insufficiency 9. Status post endovascular AAA repair 10. Hypertension/hyperlipidemia 11. Diabetes mellitus 12. Hyperkalemia Patient remains in decompensated congestive heart failure despite Lasix 80 mg IV twice a day. BUN continues to rise. Creatinine and blood pressure are stable. He is not on Aldactone or FAISAL inhibitor due to renal insufficiency/hyperkalemia. Continue Imdur/Hydralazine/Coreg. Given his refractory heart failure we have initiated a low-dose dobutamine infusion. Monitor strict I's and O's and daily weights. I had an extensive discussion with the patient's son over the phone this morning regarding goals of care. He will plan to discuss with his father in more detail about goals of care including possible hospice given the patient's poor long- term prognosis given his advanced multiple medical issues including end stage CHF with BiV failure. Aldo Gorman MD [facility] Continue telemetry? Yes
[2016-08-17 16:21] VITALS: BP 140/72
--- NOTE | 2016-08-17 17:27 | Patient Discharge Instructions ---
Discharge Instructions General Discharge Information You were seen/treated for: Acute on chronic decompensated heart failure with ejection fraction 15% Acute on chronic hypoxic respiratory failure You had these procedures: None Watch for these problems: Worsening shortness of breath Worsening bilateral lower extremity edema Special Instructions: Follow-up with primary care doctor in 1 week Follow-up with Dr. Keith Durham MD feed mixer in 1 week Diet Recommended Diet: Heart Healthy Activity Activity Limited to: Walking with Assistance Acute Coronary Syndrome Inclusion Criteria At DC or during hospital stay patient has or had the following: ACS DIAGNOSIS No Discharge Core Measures Meds if any: Prescribed or Continued at Discharge Meds if any: NOT Prescribed or Continued at Discharge Congestive Heart Failure Inclusion Criteria At DC or during hospital stay patient has or had the following: CHF DIAGNOSIS Yes Discharge Core Measures Meds if any: Prescribed or Continued at Discharge Meds if any: NOT Prescribed or Continued at Discharge Cerebrovascular accident Inclusion Criteria At DC or during hospital stay patient has or had the following: CVA/TIA Diagnosis No Discharge Core Measures Meds if any: Prescribed or Continued at Discharge Meds if any: NOT Prescribed or Continued at Discharge Venous thromboembolism Inclusion Criteria VTE Diagnosis No VTE Type NONE VTE Confirmed by (Test) NONE Discharge Core Measures - Per Current guidelines, there needs to be overlap - treatment for the first 5 days of Warfarin therapy. - If discharged on Warfarin prior to 5 days of - overlap therapy, the patient will need to be - assessed for post discharge needs including - *Post discharge parental anticoagulation - *Warfarin and/or parental anticoagulation education - *Follow up date to check INR post discharge At least 5 days overlap therapy as Inpatient No Meds if any: Prescribed or Continued at Discharge Note: Overlap Therapy is Warfarin and Anticoagulant Meds if any: NOT Prescribed or Continued at Discharge
[2016-08-18 01:05] VITALS: BP 140/60
--- NOTE | 2016-08-18 07:26 | PN- Att Addend ---
Attending Addendum Attending Brief Note Intake & Output 08/18 0800 08/18 0000 08/17 1600 Intake Total 360 550 400 Output Total 1000 350 Balance -640 200 400 Intake, IV 160 200 Intake, Oral 200 350 400 Number 2 0 Bowel Movements Output, Urine 1000 350 Patient 140 lb 157 lb Weight Laboratory Tests 08/18 639 Chemistry Sodium Pending Potassium Pending Chloride Pending Carbon Dioxide Pending Anion Gap Pending BUN Pending Creatinine Pending BUN/Creatinine Ratio Pending Microbiology Date/Time Procedure - Status Source Growth 08/17 2199 Urine Culture - RECD URINE ROUT Attending note. Patient is complaining of shortness of breath and extremely fatigued. Currently in IV Lasix 80 mg twice a day with very minimal improvement. On discussion with cardiology as well as with patient's son Santhosh Patient son who is The power of inspector tester sorter agreed that the patient can be transferred to [place] for comfort care/hospice care.
[2016-08-18 08:00] VITALS: BP 150/60
--- NOTE | 2016-08-18 13:23 | PN- Att Addend ---
Attending Addendum Attending Brief Note Hospice admission note Chief complaint- worsening respiratory status History of present illness This is a 75-year-old male with past medical history significant for HFREF secondary to ischemic cardiomyopathy status post biventricular AICD, atrial fibrillation on eliqus and digoxin, coronary artery disease status post CABG and triple bypass, COPD on 2 L oxygen, systolic congestive heart failure on Lasix, type 2 diabetes mellitus, insomnia, anxiety, depression, GERD, peripheral vascular disease, endovascular abdominal aortic repair, right MCA stroke was brought to [facility] emergency department from [facility] for worsening shortness of breath, bilateral lower extremity edema, decreased oxygen saturations for one day prior to presentation. Of note patient was discharged on 07/30/2016 after treated for acute decompensated heart failure. He was discharged to [facility] on Lasix 40 mg twice a day. Last echocardiogram done in July 2016 showed ejection fraction 15-20% with systolic failure, moderate pulmonary hypertension. He quitted smoking 15 years ago, denies alcohol intake, denies illicit drug abuse. 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 Allergies/Medications Allergies: Coded Allergies: Fish Containing Products (N/V 05/07/16) banana (07/27/16) chicken derived (CHICKEN PROTEIN N/V 05/07/16) egg (07/27/16) shellfish derived (UNKNOWN 05/07/16) Uncoded Allergies: MEAT (07/27/16) EXTRACT Home Med list Apixaban (Eliquis) 2.5 MG TABLET 1 TAB PO BID BLOOD THINNER (Reported) Aspirin (Ecotrin*) 81 MG TABLET.DR 1 TAB PO DAILY HEART HEALTH (Reported) Budesonide 0.25 MG/2 ML AMPUL.NEB 1 Vial INH/CRISTOPHER BID BREATHING PROBLEMS ( Reported) Carvedilol 3.125 MG TABLET 1 TAB PO BID BP (Reported) Digoxin (Lanoxin) 125 MCG TABLET 0.125 MG PO Q48 a-fib Folic Acid 1 MG TABLET 1 TAB PO DAILY SUPPLEMENT (Reported) Furosemide (Lasix) 40 MG TABLET 1 TAB PO BID CHF Hydralazine HCl 25 MG TABLET 25 MG PO BID HTN Insulin Aspart (Novolog) (Unknown Strength) VIAL 0 SC SEE SLIDING SCALE DIABETES (Reported) BEFORE MEALS Blood Insulin Sugar Units <80 0 81-100 2 101-200 4 201-250 6 251-300 8 301-350 10 351-400 12 >400 Call Doctor Insulin Detemir (Levemir) 100 UNIT/ML VIAL 6 U SC QPM DIABETES (Reported) Ipratropium/Albuterol Sulfate (Iprat-Albut 0.5-3(2.5) MG/3 Ml) 0.5 MG-3 MG (2.5 MG BASE)/3 ML AMPUL.NEB 1 VIAL PO 4 TIMES/DAY BREATHING PROBLEMS (Reported) Isosorbide Mononitrate (Isosorbide Mononitrate ER) 30 MG TAB.ER.24H 30 MG PO DAILY HTN Mirtazapine 15 MG TABLET 1 TAB PO QPM SLEEP (Reported) Multivitamin (Daily Value) 1 EACH TABLET 1 TAB PO DAILY SUPPLEMENT (Reported) Pantoprazole Sodium 40 MG TABLET.DR 1 TAB PO DAILY GI (Reported) Prednisone 10 MG TABLET 10 MG PO DAILY COPD Sennosides (Senna) 8.6 MG TABLET 1 TAB PO BID CONSTIPATION (Reported) Trazodone HCl 50 MG TABLET 0.5 TAB PO AT BEDTIME SLEEP (Reported) Compliance With Home Meds: GOOD Past History Travel History Traveled to [place] past 21 day No Medical History Neurological: NONE (R MCA distribution), CVA EENT: NONE Cardiovascular: AFIB, CAD, cardiomyopathy, CHF, hypertension, hyperlipidemia, PVD, PACEMAKER/DEFIB TRIPLE BIPASS ANGIOPLASTY ischemic cardiomyopathy Respiratory: emphysema, interstitial lung disease Gastrointestinal: 04/23/07: EGD- min GERD w/o bxs 09/18/04: Colon- purged, hyperplastic polyps Hepatic: 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) Renal: chronic kidney disease Musculoskeletal: R THUMB REMOVED L SHOULDER SURGERY industrial accident leading to traumatic amputation in 1966 Psychiatric: depression Endocrine: diabetes Blood Disorders: NONE Cancer(s): NONE CREW BOSS/Reproductive: NONE History of MRSA: No History of VRE: No History of CDIFF: No Pneumonia Vaccine: 04/12/16 Influenza Vaccine: 04/12/16 Surgical History Surgical History: cholecystectomy (lap), L LEG BIPASS L CHEST WALL PACEMAKER/ AICD TRIPLE BIPASS ANGIOPLASTY ENDOVASC AAA REPAIR Past Family/Social History Family History Relations & Conditions if any SON FH: diabetes mellitus FHx: hypertension FATHER, , Age 60+; Cause: Myocardial infarction. FH: myocardial infarction MOTHER, , Age 54; Cause: Unknown cause of morbidity or mortality. Psychosocial History Who Do You Live With? spouse (prior to 05/11/16; in [place]), self Services at Home: Home Health Aide (prior to 05/11/16; in [place]) Primary Language: Divehi, Kazakh Smoking Status: Former Smoker ETOH Use: denies use, 6 Illicit Drug Use: denies illicit drug use Living Will? no Power of Prize Coordinator/HCP? yes Name of POA/HCP: pt's son, Kamlesh Todd [phone] Functional Ability ADLs Independent: eating, toileting. Needs Assist: dressing, bathing. Ambulation: independent IADLs Independent: shopping, housework, finances, food prep, telephone, medication admin. Needs Assist: transportation. Review of Systems Patient is obtunded and confused and unable to offer review system area and he appears to be in distress and was morning. He occasionally opens his eyes but not able to give history. Vital Signs Date Time Temp Pulse Resp B/P Pulse O2 O2 Flow FiO2 Ox Delivery Rate 08/18 0810 99 Nasal 3.0L Cannula 08/18 08 97.9 82 20 150/60 98 Nasal 3.0L Cannula 08/18 0105 97.9 74 22 140/60 97 Nasal Cannula 08/18 0000 Nasal 3.0L Cannula 08/17 2144 83 148/70 08/17 2144 83 148/70 08/17 1621 97.8 82 24 140/72 99 Nasal 3.0L Cannula 08/17 1600 97 Nasal 3.0L Cannula 08/17 1450 97.4 76 18 132/62 Intake & Output 08/18 1600 08/18 0800 08/18 0000 Intake Total 360 550 Output Total 1000 350 Balance -640 200 Intake, IV 160 200 Intake, Oral 200 350 Number 2 Bowel Movements Output, Urine 1000 350 Patient 140 lb 157 lb Weight Exam: General: Patient obtunded and confused and occasionally opens eyes but does not make a meaningful interaction with examiner; it appears to be in mild distress. CVS: S1 plus S2 without any murmur or gallops Chest: Few scattered crepitation without any wheeze. There is no respiratory distress. Abdomen: Soft nontender, bowel sound present, no guarding or rebound BODY DIE MAKER: Awake alert oriented without any focal neuro deficit and follows command appropriately Extremities: Bilateral 3+ edema; no clubbing or cyanosis noted Laboratory Tests 08/18 0640 Chemistry Sodium (137 - 145 mmol/L) 138 Potassium (3.5 - 5.1 mmol/L) 5.7 H Chloride (98 - 107 mmol/L) 94 L Carbon Dioxide (22 - 30 mmol/L) 33 H Anion Gap (5 - 16) 11 BUN (9 - 20 mg/dL) 111 *H Creatinine (0.7 - 1.2 mg/dL) 1.7 H Estimated GFR (>60 ml/min) 40 L BUN/Creatinine Ratio (7 - 25 %) 65.3 H Microbiology Date/Time Procedure - Status Source Growth 08/17 2199 Urine Culture - RECD URINE ROUT Problem list 1. Acute exacerbation of HFREF 2. Possible COPD exacerbation 3. Atrial fibrillation 4. Chronic kidney disease 5. Coronary artery disease status post CABG 6. Type 2 diabetes mellitus 7. Insomnia 8. Anxiety 9. GERD 10. Depression Plan * As per Dr. Coelho note; patient is being admitted to hospice care * We will initiate subcutaneous morphine and Ativan. In addition we will start scopolamine patch. Patient also given melatonin for sleep at night. Oxygen will be continued for comfort. * Patient can be moved to general medical floor
--- NOTE | 2016-08-18 14:00 | Event Note ---
Event Note Event Note: Discussed with Dr. RYAN, we will change the CODE STATUS to the comfort measure and discussed and agreed with the patient and the family/Power of clinical courier, son. Admit the patient to the inpatient hospice. tire center manager was informed and hospice care is on BOARD.
--- NOTE | 2016-08-20 18:10 | Discharge Summary ---
Visit Information Visit Dates Admission Date: 08/12/16 Discharge Date: 08/18/16 Hospital Course Course Attending Physician: DEBBIE NEGRETE,LINDA Cruz Primary Care Physician: SHELBY NEGRETE,ANISH Ross Other Care Providers: dr. singh Consulting Request: Consulting Specialty: Cardiology Hospital Course: This is a 75-year-old male with past medical history significant for HFREF secondary to ischemic cardiomyopathy status post biventricular AICD, atrial fibrillation on eliqus and digoxin, coronary artery disease status post CABG and triple bypass, COPD on 2 L oxygen, systolic congestive heart failure on Lasix, type 2 diabetes mellitus, insomnia, anxiety, depression, GERD, peripheral vascular disease, endovascular abdominal aortic repair, right MCA stroke was brought to [facility] emergency department from [facility] for worsening shortness of breath, bilateral lower extremity edema, decreased oxygen saturations for one day prior to presentation. Of note patient was discharged on 07/30/2016 after treated for acute decompensated heart failure. He was discharged to [facility] on Lasix 40 mg twice a day. Last echocardiogram done in July 2016 showed ejection fraction 15-20% with systolic failure, moderate pulmonary hypertension. Vitals on admission-afebrile, heart rate 80, respiratory rate 20, blood pressure 165/70, saturating at 94% on 4 L. -Pertinent labs-CBC normal, sodium 139, potassium 5.4, BUN 62, creatinine 1.7. Liver function tests-bilirubin 1.9, ALT 71, AST 48, alkaline phosphatase 94 Troponins negative on admission ProBNP 97354. ABG 7.33, 25, 49 EKG atrial flutter fibrillation rate 88. No ST-T wave changes. Chest x-ray showed cardiomegaly and congestive heart failure interstitial edema and bilateral pleural effusions left greater than right Patient received IV Lasix 40 mg once in the emergency room. Acute exacerbation of systolic congestive heart failure(hfref)/ decompensated heart failure Patient was brought to the emergency department with worsening shortness of breath and decreased oxygen saturations on 2 L oxygen. Increased weight gain and bilateral lower extremity edema was found. He was found lethargic and wheezing. ProBNP elevated on admission. Chest x-ray showed cardiomegaly and congestive heart failure, bilateral pleural effusions left greater than right. Of note patient was discharged on 07/30/2016 after being treated for acute systolic congestive heart failure. He was discharged on carvedilol, hydralazine ,IMDUR, Lasix 40 twice a day, digoxin. Admitted to telemetry floor for treatment of acute CHF exacerbation. Monitored Strict ins and outs and Daily weights. He was given IV lasix 80 mg bid. Started on dobutamine drip for decompensated heart failure. Continued Coreg 3.125 twice a day, isosorbide mononitrate 30 mg daily, hydralazine 25 mg twice a day. Possible COPD exacerbation Presented with worsening shortness of breath and wheezing. He was lethargic and wheezing. ABGs in the emergency room showed pH 7.33, bicarbonate 25, carbon dioxide 49, respiratory acidosis with compensation. Of note patient is on 2 L oxygen at nursing care facility. He required 3L in the hospital. Continued providing oxygen supplementation and Maintained oxygen saturation above 90%. Received Total respiratory care and Methylprednisolone 40 mg every 12hrson on Budesonide, albuterol/ipratropium. Acute on chronic hypoxic respiratory failure Presented with worsening shortness of breath and wheezing. He was lethargic and wheezing. ABGs in the emergency room showed pH 7.33, bicarbonate 25, carbon dioxide 49, respiratory acidosis with compensation. Of note patient is on 2 L oxygen at nursing care facility. He required 3-4L in the hospital. Admitted for acute on chronic hypoxic respiratory failure. Continued supplemental oxygen and Maintained oxygen saturations above 92%. Hyperkalemia Potassium 5.4 on admission with No EKG changes Chronic kidney disease Baseline creatinine 1.5-1.8. Creatinine on admission 1.7, Atrial fibrillation Continued home dose of eliqus 2.5 mg twice a day Continued digoxin 0.125 mg every 48 hours Coronary artery disease Status post CABG and triple bypass Continued baby aspirin Hypertension Continued home dose of Coreg hydralazine and isosorbide mono nitrate both for hypertension and CHF Type 2 diabetes mellitus Patient is on NovoLog sliding scale and Levemir 6 units every night for type 2 diabetes mellitus Insomnia Continued mirtazapine every night anxiety Continued trazodone 25 mg GERD Continued pantoprazole 40 daily Patient son who is The power of trade mark attorney agreed that the patient can be changed to comfort care/hospice care from . As per Dr. Coelho note; patient is admitted to hospice care. disContinued all the medications started on subcutaneous morphine and Ativan and scopolamine patch. Patient also given melatonin for sleep at night. Oxygen continued for comfort. moved to general medical floor. Complications: none Allergies: Coded Allergies: Fish Containing Products (N/V 05/07/16) banana (07/27/16) chicken derived (CHICKEN PROTEIN N/V 05/07/16) egg (07/27/16) shellfish derived (UNKNOWN 05/07/16) Uncoded Allergies: MEAT (07/27/16) EXTRACT Significant Procedures: none Pertinent Lab Results: cxr Cardiomegaly and congestive heart failure. Interstitial edema is evident. Persistent bilateral pleural effusions (left remaining larger than right). The increased patchy opacities in lower lung zones are nonspecific and could reflect presence of atelectasis, edema and/or infiltrates. Bilateral lower extremity Doppler Normal triplex scan without evidence of deep venous thrombosis involving the left upper extremity. Disposition Summary Disposition Principal Diagnosis: Decompensated heart failure Additional Diagnosis: Atrial fibrillation Discharge Disposition: hospice - medical facilit Discharge Instructions General Discharge Information Code Status: Hospice Patient's Diet: As tolerated Patient's Activity: as Tolerated Follow-Up Instructions/Appts: Patient was made hospice/comfort care Medications at Discharge Discharge Medications: Continue taking these medications: Ipratropium/Albuterol Sulfate (Iprat-Albut 0.5-3(2.5) MG/3 Ml) 0.5 MG-3 MG (2.5 MG BASE)/3 ML AMPUL.NEB 1 VIAL ORAL 4 TIMES A DAY Carvedilol (Carvedilol) 3.125 MG TABLET 1 Tablet ORAL TWICE DAILY Comments: Last Taken: 05/12/16 Time: 1000 Aspirin (Ecotrin*) 81 MG TABLET.DR 1 Tablet ORAL DAILY Comments: NOT TAKEN IN HOSPITAL Insulin Aspart (Novolog) (Unknown Strength) VIAL 0 Inject into fatty tissue SEE SLIDING SCALE Instructions: BEFORE MEALS Blood Insulin Sugar Units <80 0 81-100 2 101-200 4 201-250 6 251-300 8 301-350 10 351-400 12 >400 Call Doctor Comments: Last Taken: 05/12/16 Time: 1200 Insulin Detemir (Levemir) 100 UNIT/ML VIAL 6 Units Inject into fatty tissue Every night Comments: Last Taken: 05/12/16 TIME: 2130 Folic Acid (Folic Acid) 1 MG TABLET 1 Tablet ORAL DAILY Multivitamin (Daily Value) 1 EACH TABLET 1 Tablet ORAL DAILY Apixaban (Eliquis) 2.5 MG TABLET 1 Tablet ORAL TWICE DAILY Sennosides (Senna) 8.6 MG TABLET 1 Tablet ORAL TWICE DAILY Pantoprazole Sodium (Pantoprazole Sodium) 40 MG TABLET.DR 1 Tablet ORAL DAILY Budesonide (Budesonide) 0.25 MG/2 ML AMPUL.NEB 1 Vial Inhale Solution TWICE DAILY Qty = 120 Mirtazapine (Mirtazapine) 15 MG TABLET 1 Tablet ORAL Every night Trazodone HCl (Trazodone HCl) 50 MG TABLET 0.5 Tablet ORAL AT BEDTIME Digoxin (Lanoxin) 125 MCG TABLET 0.125 Milligram ORAL EVERY 48 HOURS (Every 2 days) Days = 30 Hydralazine HCl (Hydralazine HCl) 25 MG TABLET 25 Milligram ORAL TWICE DAILY Days = 30 Isosorbide Mononitrate (Isosorbide Mononitrate ER) 30 MG TAB.ER.24H 30 Milligram ORAL DAILY Days = 30 Prednisone (Prednisone) 10 MG TABLET 10 Milligram ORAL DAILY Days = 1 Furosemide (Lasix) 40 MG TABLET 1 Tablet ORAL TWICE DAILY Days = 30 Copies To: SHELBY NEGRETE,ANISH Ross
== END 2016-08-18 16:03 | disposition hospice, home (50) | DRG 291 ==
LOC: ERH 11:05 → 1NO 13:52 → 2NA 13:52 → ERHI 13:52 → 1NO 17:15 → 2NA 08-18 15:44
PROVIDERS: Dermatology; Physician Assistant Medical; ADMIT Internal Medicine
DX: I13.0 Hypertensive heart and chronic kidney disease with heart failure and stage 1 through stage 4 chronic kidney disease, or unspecified chronic kidney disease (principal); I50.23 Acute on chronic systolic (congestive) heart failure; J96.21 Acute and chronic respiratory failure with hypoxia; I69.354 Hemiplegia and hemiparesis following cerebral infarction affecting left non-dominant side; J44.9 Chronic obstructive pulmonary disease, unspecified; N18.3 Chronic kidney disease, stage 3 (moderate); I25.5 Ischemic cardiomyopathy; Z95.810 Presence of automatic (implantable) cardiac defibrillator; I48.91 Unspecified atrial fibrillation; Z79.01 Long term (current) use of anticoagulants; Z95.1 Presence of aortocoronary bypass graft; E11.9 Type 2 diabetes mellitus without complications; F41.9 Anxiety disorder, unspecified; F32.9 Major depressive disorder, single episode, unspecified; K21.9 Gastro-esophageal reflux disease without esophagitis; I73.9 Peripheral vascular disease, unspecified; Z51.5 Encounter for palliative care
CPT/HCPCS: 1NSP; 36415; 82436; 87040; 87086; 87088; 93005; 93010; 96374; J1940; J2920; J3490; J7626

== ENCOUNTER 2016-08-18 16:03 | Inpatient (IN) | payer OTHER ==
--- NOTE | 2016-10-11 14:44 | Discharge Summary ---
Visit Information Visit Dates Admission Date: 08/18/16 Discharge Date: 08/19/16 Hospital Course Course Attending Physician: ANISH RYAN MD Primary Care Physician: ANISH RYAN MD Other Care Providers: [facility] Course: Patient was transferred to hospice service and succumbed to his illness and on 08/19/2016. Allergies: Coded Allergies: Fish Containing Products (N/V 05/07/16) banana (07/27/16) chicken derived (CHICKEN PROTEIN N/V 05/07/16) egg (07/27/16) shellfish derived (UNKNOWN 05/07/16) Uncoded Allergies: MEAT (07/27/16) EXTRACT Disposition Summary Disposition Principal Diagnosis: Ischemic cardiomyopathy Additional Diagnosis: COPD Peripheral vascular disease CK-MB Diabetes Discharge Disposition: hospice - medical facilit Discharge Instructions General Discharge Information Code Status: Do Not Resucitate Patient's Diet: As tolerated Patient's Activity: As tolerated Follow-Up Instructions/Appts: Dr. Ryan Copies To: ANISH RYAN MD Attending MD Review Statement Documenting Attending: ANISH RYAN MD Other Findings: None
== END 2016-08-19 04:54 | disposition expired | DRG 316 ==
LOC: 2NA 16:03
PROVIDERS: ADMIT Hospitalist
DX: I42.9 Cardiomyopathy, unspecified (principal); Z51.5 Encounter for palliative care
CPT/HCPCS: 2NAP; J2270